=== PATIENT | male | born 1935 | race Caucasian/White ===

== ENCOUNTER 2022-12-11 09:22 | Emergency (ER) | payer OTHER ==
--- OUTSIDE RECORDS SUMMARY | 2022-12-11 09:30 | XMS REPORT | Continuity of Care Document ---
:1935 Author Organization [facility] t Address [facility] [place] [address] Care Team Providers Name Role Phone Latoya Zaldivar MD Primary Care Physician [phone] RENETTA SETHI Attending Clinician Unavailable LATOYA ZALDIVAR Attending Clinician Unavailable Alisson NOE, Cabrera Attending Clinician Latoya Zaldivar MD Attending Clinician [phone] CABRERA BARRIENTOS Attending Clinician Unavailable 2, [facility] Attending Clinician Unavailable Hakeem Kaminski MD Attending Clinician Team, [facility] Attending Clinician [facility] Unassigned, [place] Attending Clinician Unavailable HOMERO PAZ Attending Clinician Unavailable Kassie Suazo DO Attending Clinician Homero Paz MD Attending Clinician Randa Dumont Attending Clinician Pob, [facility] Main Attending Clinician Unavailable HOMERO PAZ Admitting Clinician Unavailable Homero Paz MD Admitting Clinician Payers Payer Name Policy Type Policy Number Effective Date Expiration Date S ource MEDICARE PART A \T\ [id number] 2002 B 00:00:00 [facility] [id number] 2020 INSURANCE 00:00:00 COMMERCIAL [id number] 2018 NON-CONTRACT 00:00:00 GENERIC Problems Condition Condition Condition Status Onset Resolution Last Treating Co mments Source Name Details Category Date Date Treatment Clinician Date Diabetes Diabetes Disease Active Unive rs mellitus mellitus 5-13 ity of 00:00: [place] [facility] Chronic Chronic Disease Active Univers pain of pain of 5-15 ity of right [place] 00:[place]: [place] [facility] 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 ICD10 Diagnosis Term [facility] Coordinator Utility Hx of Hx of Disease Active Overview: [facility] s malignant malignant 12-30 [place] i ty of neoplasm neoplasm 00:00: g of this [place] as of of note Medical prostate prostate might be Bran ch different from the original. Dx age 72- s/p XRT Obesity Obesity Disease Active Overview: Univ ers - [place] ity of 00:00: g of this [place] note Medical might be Branch different from the original. ICD10 Diagnosis Term [facility] Coordinator Utility Mixed Mixed Disease Active Univers hyperlipid hyperlipid 2-26 it y of emia emia 00:00: [place] [facility] Anemia Anemia Disease Active Overview: Univer s 2-26 [place] ity of 00:00: g of this note Medical might be Branch different from the original. ICD10 Diagnosis Term [facility] Coordinator Utility Tinea Tinea Disease Active Univers pedis pedis 2-26 ity of 00:00: [place] [facility] Allergies, Adverse Reactions, Alerts Allergy Allergy Status Severity Reaction(s) Onset Inactive Treating Comm ents Source Name Type Date Date Clinician NO KNOWN Drug Active Univers ALLERGIE Class ity of S [facility] Social History Social Habit Start Date Stop Date Quantity Comments Source History SDOH University o f Alcohol Frequency [facility] edical Branch History SDWY University o f Alcohol Std [place] [facility] Drinks Branch History [facility] o f Alcohol Binge [place] [facility] Alcohol intake 2022-10-10 2022-10-10 .24 /d University of 00:00:00 00:00:00 [facility] Exposure to 2022-05-07 2022-05-17 Not sure University SARS-CoV-2 00:00:00 10:15:00 [facility] (event) Branch Tobacco use and 2014-12-30 2014-12-30 Smokeless tobacco Un iversity of exposure 00:00:00 00:00:00 non-user [facility] Alcohol Comment 2014-12-30 2014-12-30 2 beers a day Univer sity of 00:00:00 00:00:00 [facility] Sex Ass[birth year] At [birth year] Universit y of 00:00:00 00:00:00 [facility] Smoking Status Start Date Stop Date Source Never smoked tobacco [facility] Medications Ordered Filled Start Stop Current Ordering Indication Dosage Frequency Signature Comments Components Source Medication Medication Date Date Medication? Clinician (SIG) Name Name MELOXICAM Yes [id number] 15mg TAKE 1 [place] 15 mg 2-03 TABLET BY ity of tablet 00:00: MOUTH ONCE 00 DAILY Medical NEEDED FOR Branch PAIN. DO NOT TAKE WITH OTHER NSAID'S (ADVIL) MELOXICAM Yes [id number] 15mg TAKE 1 [place] 15 mg 2-03 TABLET BY ity of tablet 00:00: MOUTH ONCE 00 DAILY Medical NEEDED FOR Branch PAIN. DO NOT TAKE WITH OTHER NSAID'S (ADVIL) AMLODIPINE Yes [id number] TAKE 2 [place] 5 mg tablet 2-03 TABLETS BY it y of 00:00: MOUTH [place] 00 EVERY DAY Medical Branch LISINOPRIL- Yes [id number] TAKE 2 U nivers HYDROCHLORO 1-11 TABLETS BY it y of THIAZIDE 00:00: MOUTH [place] 20-12.5 mg 00 EVERY DAY Medi bryce per tablet Branch LISINOPRIL- Yes [id number] TAKE 2 U nivers HYDROCHLORO 1-11 TABLETS BY it y of THIAZIDE 00:00: MOUTH [place] 20-12.5 mg 00 EVERY DAY Medi bryce per tablet Branch LISINOPRIL- 2023-0 Yes [id number] TAKE 2 U nivers HYDROCHLORO 1-11 TABLETS BY it y of THIAZIDE 00:00: MOUTH [place] 20-12.5 mg 00 EVERY DAY Medi bryce per tablet Branch LISINOPRIL- 2022-0 Yes [id number] TAKE 2 U nivers HYDROCHLORO 1-11 TABLETS BY it y of THIAZIDE 00:00: MOUTH [place] 20-12.5 mg 00 EVERY DAY Medi bryce per tablet Branch LISINOPRIL- 2022-0 Yes [id number] TAKE 2 U nivers HYDROCHLORO 1-11 TABLETS BY it y of THIAZIDE 00:00: MOUTH [place] 20-12.5 mg 00 EVERY DAY Medi bryce per tablet Branch METFORMIN 2022-0 Yes [id number] TAKE 1 U nivers 850 mg 1-10 TABLET BY ity of tablet 00:00: MOUTH [place] 00 TWICE A Medical DAY WITH Branch MEALS METFORMIN 2022-0 Yes [id number] TAKE 1 U nivers 850 mg 1-10 TABLET BY ity of tablet 00:00: MOUTH [place] 00 TWICE A Medical DAY WITH Branch MEALS METFORMIN 2022-0 Yes [id number] TAKE 1 U nivers 850 mg 1-10 TABLET BY ity of tablet 00:00: MOUTH [place] 00 TWICE A Medical DAY WITH Branch MEALS METFORMIN 2022-0 Yes [id number] TAKE 1 U nivers 850 mg 1-10 TABLET BY ity of tablet 00:00: MOUTH [place] 00 TWICE A Medical DAY WITH Branch MEALS METFORMIN 3-0 Yes [id number] TAKE 1 U nivers 850 mg 1-10 TABLET BY ity of tablet 00:00: MOUTH [place] 00 TWICE A Medical DAY WITH Branch MEALS METFORMIN 3-0 Yes [id number] TAKE 1 U nivers 850 mg 1-10 TABLET BY ity of tablet 00:00: MOUTH [place] 00 TWICE A Medical DAY WITH Branch MEALS cyclobenzap 2021-11 Yes [id number] 10mg Take 1 Univers rine 10 mg 2-07 tablet by ity of tablet 00:00: mouth in [place] 00 the Medical morning Branch and 1 tablet in the evening. meloxicam 2021-11 Yes [id number] 15mg Take 1 [place] 15 mg 2-07 tablet by ity of tablet 00:00: mouth once [place] 00 daily as Medical needed for Branch Pain. Do not take with other NSAID's (Advil) cyclobenzap 2021-11 Yes [id number] 10mg Take 1 Univers rine 10 mg 2-07 tablet by ity of tablet 00:00: mouth in [place] 00 the Medical morning Branch and 1 tablet in the evening. meloxicam 2021-11 Yes [id number] 15mg Take 1 [place] 15 mg 2-07 tablet by ity of tablet 00:00: mouth once [place] 00 daily as Medical needed for Branch Pain. Do not take with other NSAID's (Advil) cyclobenzap 2021-11 Yes [id number] 10mg Take 1 Univers rine 10 mg 2-07 tablet by ity of tablet 00:00: mouth in [place] 00 the Medical morning Branch and 1 tablet in the evening. meloxicam 2021-11 Yes [id number] 15mg Take 1 [place] 15 mg 2-07 tablet by ity of tablet 00:00: mouth once [place] 00 daily as Medical needed for Branch Pain. Do not take with other NSAID's (Advil) cyclobenzap 2021-11 Yes [id number] 10mg Take 1 Univers rine 10 mg 2-07 tablet by ity of tablet 00:00: mouth in [place] 00 the Medical morning Branch and 1 tablet in the evening. meloxicam 2021-11 Yes [id number] 15mg Take 1 [place] 15 mg 2-07 tablet by ity of tablet 00:00: mouth once [place] 00 daily as Medical needed for Branch Pain. Do not take with other NSAID's (Advil) cyclobenzap 2021-11 Yes [id number] 10mg Take 1 Univers rine 10 mg 2-07 tablet by ity of tablet 00:00: mouth in [place] 00 the Medical morning Branch and 1 tablet in the evening. meloxicam 2021-11 Yes [id number] 15mg Take 1 [place] 15 mg 2-07 tablet by ity of tablet 00:00: mouth once [place] 00 daily as Medical needed for Branch Pain. Do not take with other NSAID's (Advil) cyclobenzap 2021-11 Yes [id number] 10mg Take 1 Univers rine 10 mg 2-07 tablet by ity of tablet 00:00: mouth in [place] 00 the Medical morning Branch and 1 tablet in the evening. meloxicam 2021-11 Yes [id number] 15mg Take 1 [place] 15 mg 2-07 tablet by ity of tablet 00:00: mouth once [place] 00 daily as Medical needed for Branch Pain. Do not take with other NSAID's (Advil) cyclobenzap 2021-11 Yes [id number] 10mg Take 1 Univers rine 10 mg 2-07 tablet by ity of tablet 00:00: mouth in [place] 00 the Medical morning Branch and 1 tablet in the evening. cyclobenzap 2021-11 Yes [id number] 10mg Take 1 Univers rine 10 mg 2-07 tablet by ity of tablet 00:00: mouth in [place] 00 the Medical morning Branch and 1 tablet in the evening. meloxicam 2021-11- No [id number] 15mg Take 1 U nivers 15 mg 2-07 - tablet by ity of tablet 00:00: 00:00 [place] 00 :00 daily as Medical needed for Branch Pain. Do not take with other NSAID's (Advil) AMLODIPINE 0 Yes [id number] TAKE 2 [place] 5 mg tablet 8-08 TABLETS BY it y of 00:00: MOUTH 00 EVERY DAY Medical Branch AMLODIPINE 2021-0 Yes [id number] TAKE 2 [place] 5 mg tablet 8-08 TABLETS BY it y of 00:00: MOUTH [place] 00 EVERY DAY Medical Branch AMLODIPINE 2021-0 Yes [id number] TAKE 2 [place] 5 mg tablet 8-08 TABLETS BY it y of 00:00: MOUTH [place] 00 EVERY DAY Medical Branch AMLODIPINE 2-0 Yes [id number] TAKE 2 [place] 5 mg tablet 8-08 TABLETS BY it y of 00:00: MOUTH 00 EVERY DAY Medical Branch AMLODIPINE 2-0 Yes [id number] TAKE 2 [place] 5 mg tablet 8-08 TABLETS BY it y of 00:00: MOUTH 00 EVERY DAY Medical Branch AMLODIPINE 2-0 Yes [id number] TAKE 2 [place] 5 mg tablet 8-08 TABLETS BY it y of 00:00: MOUTH [place] 00 EVERY DAY Medical Branch AMLODIPINE 2-0 Yes [id number] TAKE 2 [place] 5 mg tablet 8-08 TABLETS BY it y of 00:00: MOUTH [place] 00 EVERY DAY Medical Branch AMLODIPINE 2-0 Yes [id number] TAKE 2 [place] 5 mg tablet 8-08 TABLETS BY it y of 00:00: MOUTH [place] 00 EVERY DAY Medical Branch AMLODIPINE 2-0 Yes [id number] TAKE 2 [place] 5 mg tablet 8-08 TABLETS BY it y of 00:00: MOUTH [place] 00 EVERY DAY Medical Branch AMLODIPINE 2021-0 Yes [id number] TAKE 2 [place] 5 mg tablet 8-08 TABLETS BY it y of 00:00: MOUTH [place] 00 EVERY DAY Medical Branch AMLODIPINE 2021-0 Yes [id number] TAKE 2 [place] 5 mg tablet 8-08 TABLETS BY it y of 00:00: MOUTH [place] 00 EVERY DAY Medical Branch AMLODIPINE 2021-0 Yes [id number] TAKE 2 [place] 5 mg tablet 8-08 TABLETS BY it y of 00:00: MOUTH [place] 00 EVERY DAY Medical Branch AMLODIPINE 2021-0 Yes [id number] TAKE 2 [place] 5 mg tablet 8-08 TABLETS BY it y of 00:00: MOUTH [place] 00 EVERY DAY Medical Branch AMLODIPINE 2021-0 2023- No [id number] TAKE 2 U nivers 5 mg tablet 8-08 02-03 TABLETS BY i ty of 00:00: 00:00 MOUTH [place] 00 :00 EVERY DAY Medical Branch ONETOUCH Yes [id number] CHECK Uni vers ULTRA TEST 8-04 BLOOD ity of strip 00:00: SUGAR ONCE [place] 00 DAILY. Medical E11.9 Branch (BRAND UPON INSURANCE APPROVAL) ONETOUCH Yes [id number] CHECK Uni vers ULTRA TEST 8-04 BLOOD ity of strip 00:00: SUGAR ONCE [place] 00 DAILY. Medical E11.9 Branch (BRAND UPON INSURANCE APPROVAL) ONETOUCH Yes [id number] CHECK Uni vers ULTRA TEST 8-04 BLOOD ity of strip 00:00: SUGAR ONCE [place] 00 DAILY. Medical E11.9 Branch (BRAND UPON INSURANCE APPROVAL) ONETOUCH Yes [id number] CHECK Uni vers ULTRA TEST 8-04 BLOOD ity of strip 00:00: SUGAR ONCE [place] 00 DAILY. Medical E11.9 Branch (BRAND UPON INSURANCE APPROVAL) ONETOUCH Yes [id number] CHECK Uni vers ULTRA TEST 8-04 BLOOD ity of strip 00:00: SUGAR ONCE [place] 00 DAILY. Medical E11.9 Branch (BRAND UPON INSURANCE APPROVAL) ONETOUCH Yes [id number] CHECK Uni vers ULTRA TEST 8-04 BLOOD ity of strip 00:00: SUGAR ONCE [place] 00 DAILY. Medical E11.9 Branch (BRAND UPON INSURANCE APPROVAL) ONETOUCH 2021-0 Yes [id number] CHECK Uni vers ULTRA TEST 8-04 BLOOD ity of strip 00:00: SUGAR ONCE [place] 00 DAILY. Medical E11.9 Branch (BRAND UPON INSURANCE APPROVAL) ONETOUCH Yes [id number] CHECK Uni vers ULTRA TEST 8-04 BLOOD ity of strip 00:00: SUGAR ONCE [place] 00 DAILY. Medical E11.9 Branch (BRAND UPON INSURANCE APPROVAL) ONETOUCH Yes [id number] CHECK Uni vers ULTRA TEST 8-04 BLOOD ity of strip 00:00: SUGAR ONCE [place] 00 DAILY. Medical E11.9 Branch (BRAND UPON INSURANCE APPROVAL) ONETOUCH Yes [id number] CHECK Uni vers ULTRA TEST 8-04 BLOOD ity of strip 00:00: SUGAR ONCE [place] 00 DAILY. Medical E11.9 Branch (BRAND UPON INSURANCE APPROVAL) ONETOUCH Yes [id number] CHECK Uni vers ULTRA TEST 8-04 BLOOD ity of strip 00:00: SUGAR ONCE [place] 00 DAILY. Medical E11.9 Branch (BRAND UPON INSURANCE APPROVAL) ONETOUCH Yes [id number] CHECK Uni vers ULTRA TEST 8-04 BLOOD ity of strip 00:00: SUGAR ONCE [place] 00 DAILY. Medical E11.9 Branch (BRAND UPON INSURANCE APPROVAL) ONETOUCH Yes [id number] CHECK Uni vers ULTRA TEST 8-04 BLOOD ity of strip 00:00: SUGAR ONCE [place] 00 DAILY. Medical E11.9 Branch (BRAND UPON INSURANCE APPROVAL) ONETOUCH Yes [id number] CHECK Uni vers ULTRA TEST 8-04 BLOOD ity of strip 00:00: SUGAR ONCE [place] 00 DAILY. Medical E11.9 Branch (BRAND UPON INSURANCE APPROVAL) ONETOUCH Yes [id number] CHECK Uni vers ULTRA TEST 8-04 BLOOD ity of strip 00:00: SUGAR ONCE [place] 00 DAILY. Medical E11.9 Branch (BRAND UPON INSURANCE APPROVAL) LISINOPRIL- Yes [id number] TAKE 2 U nivers HYDROCHLORO 7-15 TABLETS BY it y of THIAZIDE 00:00: MOUTH [place] 20-12.5 mg 00 EVERY DAY Medi bryce per tablet Branch METFORMIN Yes [id number] TAKE 1 U nivers 850 mg 7-15 TABLET BY ity of tablet 00:00: MOUTH [place] 00 TWICE A Medical DAY WITH Branch MEALS LISINOPRIL- Yes [id number] TAKE 2 U nivers HYDROCHLORO 7-15 TABLETS BY it y of THIAZIDE 00:00: MOUTH [place] 20-12.5 mg 00 EVERY DAY Medi bryce per tablet Branch METFORMIN 2021-0 Yes [id number] TAKE 1 U nivers 850 mg 7-15 TABLET BY ity of tablet 00:00: MOUTH [place] 00 TWICE A Medical DAY WITH Branch MEALS LISINOPRIL- 2021-0 Yes [id number] TAKE 2 U nivers HYDROCHLORO 7-15 TABLETS BY it y of THIAZIDE 00:00: MOUTH [place] 20-12.5 mg 00 EVERY DAY Medi bryce per tablet Branch METFORMIN 2021-0 Yes [id number] TAKE 1 U nivers 850 mg 7-15 TABLET BY ity of tablet 00:00: MOUTH [place] 00 TWICE A Medical DAY WITH Branch MEALS LISINOPRIL- 2021-0 Yes [id number] TAKE 2 U nivers HYDROCHLORO 7-15 TABLETS BY it y of THIAZIDE 00:00: MOUTH [place] 20-12.5 mg 00 EVERY DAY Medi bryce per tablet Branch METFORMIN 2021-0 Yes [id number] TAKE 1 U nivers 850 mg 7-15 TABLET BY ity of tablet 00:00: MOUTH [place] 00 TWICE A Medical DAY WITH Branch MEALS LISINOPRIL- 2021-0 Yes [id number] TAKE 2 U nivers HYDROCHLORO 7-15 TABLETS BY it y of THIAZIDE 00:00: MOUTH [place] 20-12.5 mg 00 EVERY DAY Medi bryce per tablet Branch METFORMIN 2021-0 Yes [id number] TAKE 1 U nivers 850 mg 7-15 TABLET BY ity of tablet 00:00: MOUTH [place] 00 TWICE A Medical DAY WITH Branch MEALS LISINOPRIL- 2021-0 Yes [id number] TAKE 2 U nivers HYDROCHLORO 7-15 TABLETS BY it y of THIAZIDE 00:00: MOUTH [place] 20-12.5 mg 00 EVERY DAY Medi bryce per tablet Branch METFORMIN 2021-0 Yes [id number] TAKE 1 U nivers 850 mg 7-15 TABLET BY ity of tablet 00:00: MOUTH [place] 00 TWICE A Medical DAY WITH Branch MEALS LISINOPRIL- 2021-0 Yes [id number] TAKE 2 U nivers HYDROCHLORO 7-15 TABLETS BY it y of THIAZIDE 00:00: MOUTH [place] 20-12.5 mg 00 EVERY DAY Medi bryce per tablet Branch METFORMIN 2021-0 Yes [id number] TAKE 1 U nivers 850 mg 7-15 TABLET BY ity of tablet 00:00: MOUTH [place] 00 TWICE A Medical DAY WITH Branch MEALS LISINOPRIL- Yes [id number] TAKE 2 U nivers HYDROCHLORO 7-15 TABLETS BY it y of THIAZIDE 00:00: MOUTH [place] 20-12.5 mg 00 EVERY DAY Medi bryce per tablet Branch METFORMIN 0 Yes [id number] TAKE 1 U nivers 850 mg 7-15 TABLET BY ity of tablet 00:00: MOUTH [place] 00 TWICE A Medical DAY WITH Branch MEALS LISINOPRIL- Yes [id number] TAKE 2 U nivers HYDROCHLORO 7-15 TABLETS BY it y of THIAZIDE 00:00: MOUTH [place] 20-12.5 mg 00 EVERY DAY Medi bryce per tablet Branch METFORMIN Yes [id number] TAKE 1 U nivers 850 mg 7-15 TABLET BY ity of tablet 00:00: MOUTH [place] 00 TWICE A Medical DAY WITH Branch MEALS LISINOPRIL- Yes [id number] TAKE 2 U nivers HYDROCHLORO 7-15 TABLETS BY it y of THIAZIDE 00:00: MOUTH [place] 20-12.5 mg 00 EVERY DAY Medi bryce per tablet Branch METFORMIN 0 Yes [id number] TAKE 1 U nivers 850 mg 7-15 TABLET BY ity of tablet 00:00: MOUTH [place] 00 TWICE A Medical DAY WITH Branch MEALS LISINOPRIL- Yes [id number] TAKE 2 U nivers HYDROCHLORO 7-15 TABLETS BY it y of THIAZIDE 00:00: MOUTH [place] 20-12.5 mg 00 EVERY DAY Medi bryce per tablet Branch LISINOPRIL- 2022- No [id number] TAKE 2 Univers HYDROCHLORO 7-15 01-11 TABLETS BY i ty of THIAZIDE 00:00: 00:00 MOUTH [place] 20-12.5 mg 00 :00 EVERY DAY Medi bryce per tablet Branch METFORMIN 0 2022- No [id number] TAKE 1 Univers 850 mg 7-15 01-10 TABLET BY ity of tablet 00:00: 00:00 MOUTH [place] 00 :00 TWICE A Medical DAY WITH Branch MEALS water for 2021- No PRN, Univers irrigation 05-17 Starting ity of irrigation 19:22: 20:02 [facility] :05 05/17/22 at Medic al 1422, Branch Until [place]ette 05/17/22 at 1502, Routine, Intra-op simethicone 2021- No PRN, Unive rs (GAS RELIEF 05-17 Starting ity of (SIMETHICON 19:22: 20:02 on Janette [place] as E)) 40 00 :05 05/17/22 at Medical mg/0.6 mL 1422, Branch drops Until [place] 05/17/22 at 1502, Routine, Intra-op glucagon 2021- No 1mg 1 mg, Univers (GLUCAGEN 05-17 Intravenou ity of DIAGNOSTIC 16:30: 15:25 s, ONCE, 1 [place] KIT) 00 :00 dose, On Medical injection 1 [place] Branch mg 05/17/22 at 1130, Routine NaCl 0.9% 2021- No 1000mL at 999 Uni vers (NS) bolus 05-17- mL/hr, ity of infusion 16:30: 16:50 1,000 mL, [place] as 1,000 mL 00 :00 IV Medical Infusion, Branch ONCE, 1 dose, On [place] 05/17/22 at 1130, [place] glucagon 2021- No 1mg 1 mg, Univers (GLUCAGEN 05-17 Intravenou ity of DIAGNOSTIC 16:30: 15:25 s, ONCE, 1 [place] KIT) 00 :00 dose, On Medical injection 1 [place] Branch mg 05/17/22 at 1130, Routine NaCl 0.9% 2021- No 1000mL at 999 Uni vers (NS) bolus 05-17 mL/hr, ity of infusion 16:30: 16:50 1,000 mL, [place] 1,000 mL 00 :00 IV Medical Infusion, Branch ONCE, 1 dose, On [place] 05/17/22 at 1130, [place] aspirin 81 Yes 81mg Take 81 mg U nivers mg chewable 7-14 by mouth ity of tablet 16:12: daily. [address] multivitami Yes 1{tbl} Take 1 Tab Univers n tablet 7-14 by mouth ity of 16:12: daily. [address] omega-3 Yes 1g Take 1 g Univer s fatty 7-14 by mouth 2 ity of acids-vitam 16:12: (two) [place] in E (FISH 45 times Medical OIL) 1,000 daily. Branch mg capsule RED YEAST Yes 1{tbl} Take 1 Tab Univers RICE ORAL 7-14 by mouth ity of 16:12: daily. [address] CYANOCOBALA Yes 1{tbl} Take 1 Un [place] MIN, 7-14 tablet by ity of VITAMIN 16:12: mouth [place] B-12, 45 daily. Medical (VITAMIN Branch B-12 ORAL) turmeric Yes [id number] 500mg Take 500 Univers root 7-14 [id number] mg by ity of extract 500 16:12: mouth [place] mg Cap 45 daily. Medical Branch COQ10, Yes Take by Univers UBIQUINOL, 7-14 mouth. ity of ORAL 16:12: [address] aspirin 81 Yes 81mg Take 81 mg U nivers mg chewable 7-14 by mouth ity of tablet 16:12: daily. [address] multivitami Yes 1{tbl} Take 1 Tab Univers n tablet 7-14 by mouth ity of 16:12: daily. [address] omega-3 Yes 1g Take 1 g Univer s fatty 7-14 by mouth 2 ity of acids-vitam 16:12: (two) [place] in E (FISH 45 times Medical OIL) 1,000 daily. Branch mg capsule RED YEAST Yes 1{tbl} Take 1 Tab Univers RICE ORAL 7-14 by mouth ity of 16:12: daily. [address] CYANOCOBALA Yes 1{tbl} Take 1 [place] MIN, 7-14 tablet by ity of VITAMIN 16:12: mouth [place] B-12, 45 daily. Medical (VITAMIN Branch B-12 ORAL) turmeric Yes [id number] 500mg Take 500 Univers root 7-14 [id number] mg by ity of extract 500 16:12: mouth [place] mg Cap 45 daily. Medical Branch aspirin 81 Yes 81mg Take 81 mg U nivers mg chewable 7-14 by mouth ity of tablet 16:12: daily. [address] multivitami Yes 1{tbl} Take 1 Tab Univers n tablet 7-14 by mouth ity of 16:12: daily. [address] omega-3 Yes 1g Take 1 g Univer s fatty 7-14 by mouth 2 ity of acids-vitam 16:12: (two) [place] in E (FISH 45 times Medical OIL) 1,000 daily. Branch mg capsule RED YEAST Yes 1{tbl} Take 1 Tab Univers RICE ORAL 7-14 by mouth ity of 16:12: daily. [address] CYANOCOBALA Yes 1{tbl} Take 1 Un [place] MIN, 7-14 tablet by ity of VITAMIN 16:12: mouth [place] B-12, 45 daily. Medical (VITAMIN Branch B-12 ORAL) turmeric Yes [id number] 500mg Take 500 Univers root 7-14 [id number] mg by ity of extract 500 16:12: mouth [place] mg Cap 45 daily. [facility] Branch COQ10, Yes Take by Univers UBIQUINOL, 7-14 mouth. ity of ORAL 16:12: [address] aspirin 81 Yes 81mg Take 81 mg U nivers mg chewable 7-14 by mouth ity of tablet 16:12: daily. [address] multivitami Yes 1{tbl} Take 1 Tab Univers n tablet 7-14 by mouth ity of 16:12: daily. [address] omega-3 Yes 1g Take 1 g Univer s fatty 7-14 by mouth 2 ity of acids-vitam 16:12: (two) [place] in E (FISH 45 times Medical OIL) 1,000 daily. Branch mg capsule RED YEAST Yes 1{tbl} Take 1 Tab Univers RICE ORAL 7-14 by mouth ity of 16:12: daily. [address] CYANOCOBALA Yes 1{tbl} Take 1 [place] MIN, 7-14 tablet by ity of VITAMIN 16:12: mouth [place] B-12, 45 daily. Medical (VITAMIN Branch B-12 ORAL) turmeric Yes [id number] 500mg Take 500 Univers root 7-14 [id number] mg by ity of extract 500 16:12: mouth [place] mg Cap 45 daily. Medical Branch COQ10, Yes Take by Univers UBIQUINOL, 7-14 mouth. ity of ORAL 16:12: [address] Branch aspirin 81 Yes 81mg Take 81 mg U nivers mg chewable 7-14 by mouth ity of tablet 16:12: daily. [address] Branch multivitami Yes 1{tbl} Take 1 Tab Univers n tablet 7-14 by mouth ity of 16:12: daily. [address] Branch omega-3 Yes 1g Take 1 g Univer s fatty 7-14 by mouth 2 ity of acids-vitam 16:12: (two) [place] in E (FISH 45 times Medical OIL) 1,000 daily. Branch mg capsule RED YEAST Yes 1{tbl} Take 1 Tab Univers RICE ORAL 7-14 by mouth ity of 16:12: daily. [address] Branch CYANOCOBALA Yes 1{tbl} Take 1 [place] MIN, 7-14 tablet by ity of VITAMIN 16:12: mouth [place] B-12, 45 daily. Medical (VITAMIN Branch B-12 ORAL) turmeric Yes [id number] 500mg Take 500 Univers root 7-14 [id number] mg by ity of extract 500 16:12: mouth [place] mg Cap 45 daily. Medical Branch COQ10, Yes Take by Univers UBIQUINOL, 7-14 mouth. ity of ORAL 16:12: [address] aspirin 81 Yes 81mg Take 81 mg U nivers mg chewable 7-14 by mouth ity of tablet 16:12: daily. [address] Branch multivitami Yes 1{tbl} Take 1 Tab Univers n tablet 7-14 by mouth ity of 16:12: daily. [address] Branch omega-3 Yes 1g Take 1 g Univer s fatty 7-14 by mouth 2 ity of acids-vitam 16:12: (two) [place] in E (FISH 45 times Medical OIL) 1,000 daily. Branch mg capsule RED YEAST Yes 1{tbl} Take 1 Tab Univers RICE ORAL 7-14 by mouth ity of 16:12: daily. [place] 45 Medical Branch CYANOCOBALA Yes 1{tbl} Take 1 Un [place] MIN, 7-14 tablet by ity of VITAMIN 16:12: mouth [place] B-12, 45 daily. Medical (VITAMIN Branch B-12 ORAL) turmeric Yes [id number] 500mg Take 500 Univers root 7-14 [id number] mg by ity of extract 500 16:12: mouth [place] mg Cap 45 daily. Medical Branch COQ10, Yes Take by Univers UBIQUINOL, 7-14 mouth. ity of ORAL 16:12: [address] aspirin 81 Yes 81mg Take 81 mg U nivers mg chewable 7-14 by mouth ity of tablet 16:12: daily. [address] Branch multivitami Yes 1{tbl} Take 1 Tab Univers n tablet 7-14 by mouth ity of 16:12: daily. [address] omega-3 Yes 1g Take 1 g Univer s fatty 7-14 by mouth 2 ity of acids-vitam 16:12: (two) [place] in E (FISH 45 times Medical OIL) 1,000 daily. Branch mg capsule RED YEAST Yes 1{tbl} Take 1 Tab [facility] RICE ORAL 7-14 by mouth ity of 16:12: daily. [address] CYANOCOBALA Yes 1{tbl} Take 1 [facility] MIN, 7-14 tablet by ity of VITAMIN 16:12: mouth [place] B-12, 45 daily. Medical (VITAMIN Branch B-12 ORAL) turmeric Yes [id number] 500mg Take 500 [facility] root 7-14 49954 mg by ity of extract 500 16:12: mouth [place] mg Cap 45 daily. Medical Branch COQ10, Yes Take by [facility] UBIQUINOL, 7-14 mouth. ity of ORAL 16:12: [address] aspirin 81 Yes 81mg Take 81 mg U nivers mg chewable 7-14 by mouth ity of tablet 16:12: daily. [address] multivitami Yes 1{tbl} Take 1 Tab [facility] n tablet 7-14 by mouth ity of 16:12: daily. [address] omega-3 Yes 1g Take 1 g Univer [facility] fatty 7-14 by mouth 2 ity of acids-vitam 16:12: (two) [place] in E (FISH 45 times Medical OIL) 1,000 daily. Branch mg capsule RED YEAST Yes 1{tbl} Take 1 Tab [facility] RICE ORAL 7-14 by mouth ity of 16:12: daily. [address] CYANOCOBALA Yes 1{tbl} Take 1 [facility] [place] MIN, 7-14 tablet by ity of VITAMIN 16:12: mouth [place] B-12, 45 daily. Medical (VITAMIN Branch B-12 ORAL) turmeric Yes [id number] 500mg Take 500 [facility] root 7-14 41412 mg by ity of extract 500 16:12: mouth [place] mg Cap 45 daily. Medical Branch COQ10, Yes Take by [facility] UBIQUINOL, 7-14 mouth. ity of ORAL 16:12: [address] aspirin 81 Yes 81mg Take 81 mg U nivers mg chewable 7-14 by mouth ity of tablet 16:12: daily. [address] multivitami Yes 1{tbl} Take 1 Tab [facility] n tablet 7-14 by mouth ity of 16:12: daily. [address] omega-3 Yes 1g Take 1 g Un[facility] fatty 7-14 by mouth 2 ity of acids-vitam 16:12: (two) [place] in E (FISH 45 times Medical OIL) 1,000 daily. Branch mg capsule RED YEAST Yes 1{tbl} Take 1 Tab [facility] RICE ORAL 7-14 by mouth ity of 16:12: daily. [address] CYANOCOBALA Yes 1{tbl} Take 1 [facility] [place] MIN, 7-14 tablet by ity of VITAMIN 16:12: mouth [place] B-12, 45 daily. Medical (VITAMIN Branch B-12 ORAL) turmeric Yes [id number] 500mg Take 500 [facility] root 7-14 89516 mg by ity of extract 500 16:12: mouth [place] mg Cap 45 daily. Medical Branch COQ10, Yes Take by [facility] UBIQUINOL, 7-14 mouth. ity of ORAL 16:12: [address] aspirin 81 Yes 81mg Take 81 mg U nivers mg chewable 7-14 by mouth ity of tablet 16:12: daily. [address] multivitami Yes 1{tbl} Take 1 Tab [facility] n tablet 7-14 by mouth ity of 16:12: daily. [address] omega-3 Yes 1g Take 1 g [facility] fatty 7-14 by mouth 2 ity of acids-vitam 16:12: (two) [place] in E (FISH 45 times Medical OIL) 1,000 daily. Branch mg capsule RED YEAST Yes 1{tbl} Take 1 Tab [facility] RICE ORAL 7-14 by mouth ity of 16:12: daily. [address] CYANOCOBALA Yes 1{tbl} Take 1 [facility] [place] MIN, 7-14 tablet by ity of VITAMIN 16:12: mouth [place] B-12, 45 daily. Medical (VITAMIN Branch B-12 ORAL) turmeric Yes [id number] 500mg Take 500 [facility] root 7-14 38127 mg by ity of extract 500 16:12: mouth [place] mg Cap 45 daily. [facility] Branch COQ10, Yes Take by [facility] UBIQUINOL, 7-14 mouth. ity of ORAL 16:12: [address] aspirin 81 Yes 81mg Take 81 mg U nivers mg chewable 7-14 by mouth ity of tablet 16:12: daily. [address] multivitami Yes 1{tbl} Take 1 Tab [facility] n tablet 7-14 by mouth ity of 16:12: daily. [address] omega-3 Yes 1g Take 1 g Univer s fatty 7-14 by mouth 2 ity of acids-vitam 16:12: (two) [place] in E (FISH 45 times Medical OIL) 1,000 daily. Branch mg capsule RED YEAST Yes 1{tbl} Take 1 Tab [facility] RICE ORAL 7-14 by mouth ity of 16:12: daily. [address] CYANOCOBALA Yes 1{tbl} Take 1 [place] MIN, 7-14 tablet by ity of VITAMIN 16:12: mouth [place] B-12, 45 daily. Medical (VITAMIN Branch B-12 ORAL) turmeric Yes [id number] 500mg Take 500 [facility] root 7-14 41673 mg by ity of extract 500 16:12: mouth [place] mg Cap 45 daily. Medical Branch COQ10, Yes Take by [facility] UBIQUINOL, 7-14 mouth. ity of ORAL 16:12: [address] aspirin 81 Yes 81mg Take 81 mg U nivers mg chewable 7-14 by mouth ity of tablet 16:12: daily. [address] Branch multivitami Yes 1{tbl} Take 1 Tab [facility] n tablet 7-14 by mouth ity of 16:12: daily. [address] Branch omega-3 Yes 1g Take 1 g Univer s fatty 7-14 by mouth 2 ity of acids-vitam 16:12: (two) [place] in E (FISH 45 times Medical OIL) 1,000 daily. Branch mg capsule RED YEAST Yes 1{tbl} Take 1 Tab [facility] RICE ORAL 7-14 by mouth ity of 16:12: daily. [address] Branch CYANOCOBALA Yes 1{tbl} Take 1 [place] MIN, 7-14 tablet by ity of VITAMIN 16:12: mouth [place] B-12, 45 daily. Medical (VITAMIN Branch B-12 ORAL) turmeric Yes [id number] 500mg Take 500 [facility] root 7-14 63695 mg by ity of extract 500 16:12: mouth [place] mg Cap 45 daily. Medical Branch COQ10, Yes Take by [facility] UBIQUINOL, 7-14 mouth. ity of ORAL 16:12: [address] aspirin 81 Yes 81mg Take 81 mg U nivers mg chewable 7-14 by mouth ity of tablet 16:12: daily. [address] Branch multivitami Yes 1{tbl} Take 1 Tab [facility] n tablet 7-14 by mouth ity of 16:12: daily. [address] omega-3 Yes 1g Take 1 g Univer s fatty 7-14 by mouth 2 ity of acids-vitam 16:12: (two) [place] in E (FISH 45 times Medical OIL) 1,000 daily. Branch mg capsule RED YEAST Yes 1{tbl} Take 1 Tab [facility] RICE ORAL 7-14 by mouth ity of 16:12: daily. [address] CYANOCOBALA Yes 1{tbl} Take 1 [place] MIN, 7-14 tablet by ity of VITAMIN 16:12: mouth [place] B-12, 45 daily. Medical (VITAMIN Branch B-12 ORAL) turmeric Yes [id number] 500mg Take 500 [facility] root 7-14 61351 mg by ity of extract 500 16:12: mouth [place] mg Cap 45 daily. Medical Branch COQ10, Yes Take by Univers UBIQUINOL, 7-14 mouth. ity of ORAL 16:12: [address] aspirin 81 Yes 81mg Take 81 mg U nivers mg chewable 7-14 by mouth ity of tablet 16:12: daily. [address] multivitami Yes 1{tbl} Take 1 Tab [facility] n tablet 7-14 by mouth ity of 16:12: daily. [address] omega-3 Yes 1g Take 1 g Univer s fatty 7-14 by mouth 2 ity of acids-vitam 16:12: (two) [place] in E (FISH 45 times Medical OIL) 1,000 daily. Branch mg capsule RED YEAST Yes 1{tbl} Take 1 Tab [facility] RICE ORAL 7-14 by mouth ity of 16:12: daily. [address] CYANOCOBALA Yes 1{tbl} Take 1 [place] MIN, 7-14 tablet by ity of VITAMIN 16:12: mouth [place] B-12, 45 daily. Medical (VITAMIN Branch B-12 ORAL) turmeric Yes [id number] 500mg Take 500 [facility] root 7-14 53230 mg by ity of extract 500 16:12: mouth [place] mg Cap 45 daily. Medical Branch COQ10, Yes Take by Univers UBIQUINOL, 7-14 mouth. ity of ORAL 16:12: [address] aspirin 81 Yes 81mg Take 81 mg U nivers mg chewable 7-14 by mouth ity of tablet 16:12: daily. [address] multivitami Yes 1{tbl} Take 1 Tab [facility] n tablet 7-14 by mouth ity of 16:12: daily. [address] omega-3 Yes 1g Take 1 g Univer s fatty 7-14 by mouth 2 ity of acids-vitam 16:12: (two) [place] in E (FISH 45 times Medical OIL) 1,000 daily. Branch mg capsule RED YEAST Yes 1{tbl} Take 1 Tab [facility] RICE ORAL 7-14 by mouth ity of 16:12: daily. [address] Branch CYANOCOBALA Yes 1{tbl} Take 1 [place] MIN, 7-14 tablet by ity of VITAMIN 16:12: mouth [place] B-12, 45 daily. Medical (VITAMIN Branch B-12 ORAL) turmeric Yes [id number] 500mg Take 500 [facility] root 7-14 57827 mg by ity of extract 500 16:12: mouth [place] mg Cap 45 daily. Medical Branch COQ10, Yes Take by [facility] UBIQUINOL, 7-14 mouth. ity of ORAL 16:12: [address] aspirin 81 Yes 81mg Take 81 mg U nivers mg chewable 7-14 by mouth ity of tablet 16:12: daily. [address] multivitami Yes 1{tbl} Take 1 Tab [facility] n tablet 7-14 by mouth ity of 16:12: daily. [address] omega-3 Yes 1g Take 1 g Univer s fatty 7-14 by mouth 2 ity of acids-vitam 16:12: (two) [place] in E (FISH 45 times Medical OIL) 1,000 daily. Branch mg capsule RED YEAST Yes 1{tbl} Take 1 Tab [facility] RICE ORAL 7-14 by mouth ity of 16:12: daily. [address] CYANOCOBALA Yes 1{tbl} Take 1 [place] MIN, 7-14 tablet by ity of VITAMIN 16:12: mouth [place] B-12, 45 daily. Medical (VITAMIN Branch B-12 ORAL) turmeric Yes [id number] 500mg Take 500 [facility] root 7-14 34752 mg by ity of extract 500 16:12: mouth [place] mg Cap 45 daily. Medical Branch COQ10, Yes Take by Univers UBIQUINOL, 7-14 mouth. ity of ORAL 16:12: [address] aspirin 81 Yes 81mg Take 81 mg U nivers mg chewable 7-14 by mouth ity of tablet 16:12: daily. [address] Branch multivitami Yes 1{tbl} Take 1 Tab [facility] n tablet 7-14 by mouth ity of 16:12: daily. [address] omega-3 Yes 1g Take 1 g Univer s fatty 7-14 by mouth 2 ity of acids-vitam 16:12: (two) [place] in E (FISH 45 times Medical OIL) 1,000 daily. Branch mg capsule RED YEAST Yes 1{tbl} Take 1 Tab [facility] RICE ORAL 7-14 by mouth ity of 16:12: daily. [address] CYANOCOBALA Yes 1{tbl} Take 1 [place] MIN, 7-14 tablet by ity of VITAMIN 16:12: mouth [place] B-12, 45 daily. Medical (VITAMIN Branch B-12 ORAL) turmeric Yes [id number] 500mg Take 500 [facility] root 7-14 10080 mg by ity of extract 500 16:12: mouth [place] mg Cap 45 daily. [facility] Branch COQ10, Yes Take by Univers UBIQUINOL, 7-14 mouth. ity of ORAL 16:12: [address] aspirin 81 Yes 81mg Take 81 mg U nivers mg chewable 7-14 by mouth ity of tablet 16:12: daily. [address] multivitami Yes 1{tbl} Take 1 Tab [facility] n tablet 7-14 by mouth ity of 16:12: daily. [address] omega-3 Yes 1g Take 1 g Univer s fatty 7-14 by mouth 2 ity of acids-vitam 16:12: (two) [place] in E (FISH 45 times Medical OIL) 1,000 daily. Branch mg capsule RED YEAST Yes 1{tbl} Take 1 Tab [facility] RICE ORAL 7-14 by mouth ity of 16:12: daily. [address] CYANOCOBALA Yes 1{tbl} Take 1 [place] MIN, 7-14 tablet by ity of VITAMIN 16:12: mouth [place] B-12, 45 daily. Medical (VITAMIN Branch B-12 ORAL) turmeric Yes [id number] 500mg Take 500 [facility] root 7-14 95316 mg by ity of extract 500 16:12: mouth [place] mg Cap 45 daily. Medical Branch COQ10, Yes Take by Univers UBIQUINOL, 7-14 mouth. ity of ORAL 16:12: [address] Branch aspirin 81 Yes 81mg Take 81 mg U nivers mg chewable 7-14 by mouth ity of tablet 16:12: daily. [address] Branch multivitami Yes 1{tbl} Take 1 Tab Univers n tablet 7-14 by mouth ity of 16:12: daily. [address] omega-3 Yes 1g Take 1 g Univer s fatty 7-14 by mouth 2 ity of acids-vitam 16:12: (two) [place] in E (FISH 45 times Medical OIL) 1,000 daily. Branch mg capsule RED YEAST Yes 1{tbl} Take 1 Tab [facility] RICE ORAL 7-14 by mouth ity of 16:12: daily. [address] Branch CYANOCOBALA Yes 1{tbl} Take 1 [place] MIN, 7-14 tablet by ity of VITAMIN 16:12: mouth [place] B-12, 45 daily. Medical (VITAMIN Branch B-12 ORAL) turmeric Yes [id number] 500mg Take 500 [facility] root 7-14 71189 mg by ity of extract 500 16:12: mouth [place] mg Cap 45 daily. Medical Branch COQ10, Yes Take by Univers UBIQUINOL, 7-14 mouth. ity of ORAL 16:12: [address] Branch ondansetron 2021- No 4mg 4 mg, Slow Univers (ZOFRAN 05-17 IV Push, ity of (PF)) 15:30: 15:26 ONCE, 1 [place] injection 4 00 :00 dose, On Medi bryce mg Janette Branch 05/17/22 at 1030, [place] ondansetron 2021- No 4mg 4 mg, Slow Univers (ZOFRAN 7-14 07-14 IV Push, ity of (PF)) 15:30: 15:26 ONCE, 1 [place] injection 4 00 :00 dose, On Medi bryce mg [place] Branch 05/17/22 at 1030, [place] COQ10, Yes Take by Univers UBIQUINOL, 6-01 mouth. ity of ORAL 20:28: [place] [facility] Branch COQ10, Yes Take by Univers UBIQUINOL, 6-01 mouth. ity of ORAL 20:28: [place] [facility] Branch turmeric Yes [id number] 500mg Take 500 [facility] root 5-13 48799 mg by ity of extract 500 10:59: mouth [place] mg Cap 25 daily. Medical Branch turmeric Yes [id number] 500mg Take 500 [facility] root 5-13 09002 mg by ity of extract 500 10:59: mouth [place] mg Cap 25 daily. Medical Branch CYANOCOBALA Yes 1{tbl} Take 1 [place] MIN, 5-13 tablet by ity of VITAMIN 10:59: mouth [place] B-12, 14 daily. Medical (VITAMIN Branch B-12 ORAL) CYANOCOBALA Yes 1{tbl} Take 1 [place] MIN, 5-13 tablet by ity of VITAMIN 10:59: mouth [place] B-12, 14 daily. Medical (VITAMIN Branch B-12 ORAL) aspirin 81 Yes 81mg Take 81 mg U nivers mg chewable 5-13 by mouth ity of tablet 10:59: daily. [place] [facility] aspirin 81 Yes 81mg Take 81 mg U nivers mg chewable 5-13 by mouth ity of tablet 10:59: daily. [address] multivitami Yes 1{tbl} Take 1 Tab Univers n tablet 5-13 by mouth ity of 10:59: daily. [place] [facility] multivitami Yes 1{tbl} Take 1 Tab Univers n tablet 5-13 by mouth ity of 10:59: daily. [place] [facility] omega-3 Yes 1g Take 1 g Univer s fatty 5-13 by mouth 2 ity of acids-vitam 10:59: (two) [place] in E (FISH 02 times Medical OIL) 1,000 daily. Branch mg capsule omega-3 Yes 1g Take 1 g Univer s fatty 5-13 by mouth 2 ity of acids-vitam 10:59: (two) [place] in E (FISH 02 times Medical OIL) 1,000 daily. Branch mg capsule RED YEAST Yes 1{tbl} Take 1 Tab [facility] RICE ORAL 5-13 by mouth ity of 10:59: daily. 00 Medical Branch RED YEAST Yes 1{tbl} Take 1 Tab [facility] RICE ORAL 5-13 by mouth ity of 10:59: daily. 00 Medical Branch CANNABIDIOL 2021- No Take by [facility] , CBD, 5-13 05-13 mouth. ity of EXTRACT 10:58: 00:00 [place] ORAL 54 :00 Medical Branch metoprolol Yes TAKE 1 Unive rs succinate 4-27 TABLET BY ity o f XL 50 mg 24 00:00: MOUTH [place] hr tablet 00 EVERY DAY Medic al FOR 90 Branch DAYS metoprolol Yes TAKE 1 Unive rs succinate 4-27 TABLET BY ity o f XL 50 mg 24 00:00: MOUTH [place] hr tablet 00 EVERY DAY Medic al FOR 90 Branch DAYS metoprolol Yes TAKE 1 Unive rs succinate 4-27 TABLET BY ity o f XL 50 mg 24 00:00: MOUTH [place] hr tablet 00 EVERY DAY Medic al FOR 90 Branch DAYS metoprolol Yes TAKE 1 Unive rs succinate 4-27 TABLET BY ity o f XL 50 mg 24 00:00: MOUTH [place] hr tablet 00 EVERY DAY Medic al FOR 90 Branch DAYS metoprolol Yes TAKE 1 Unive rs succinate 4-27 TABLET BY ity o f XL 50 mg 24 00:00: MOUTH [place] hr tablet 00 EVERY DAY Medic al FOR 90 Branch DAYS metoprolol Yes TAKE 1 Unive rs succinate 4-27 TABLET BY ity o f XL 50 mg 24 00:00: MOUTH [place] hr tablet 00 EVERY DAY Medic al FOR 90 Branch DAYS metoprolol Yes TAKE 1 Unive rs succinate 4-27 TABLET BY ity o f XL 50 mg 24 00:00: MOUTH [place] hr tablet 00 EVERY DAY Medic al FOR 90 Branch DAYS metoprolol Yes TAKE 1 Unive rs succinate 4-27 TABLET BY ity o f XL 50 mg 24 00:00: MOUTH [place] hr tablet 00 EVERY DAY Medic al FOR 90 Branch DAYS metoprolol 0 Yes TAKE 1 Unive rs succinate 4-27 TABLET BY ity o f XL 50 mg 24 00:00: MOUTH [place] hr tablet 00 EVERY DAY Medic al FOR 90 Branch DAYS metoprolol 0 Yes TAKE 1 Unive rs succinate 4-27 TABLET BY ity o f XL 50 mg 24 00:00: MOUTH [place] hr tablet 00 EVERY DAY Medic al FOR 90 Branch DAYS metoprolol 0 Yes TAKE 1 Unive rs succinate 4-27 TABLET BY ity o f XL 50 mg 24 00:00: MOUTH [place] hr tablet 00 EVERY DAY Medic al FOR 90 Branch DAYS metoprolol 0 Yes TAKE 1 Unive rs succinate 4-27 TABLET BY ity o f XL 50 mg 24 00:00: MOUTH [place] hr tablet 00 EVERY DAY Medic al FOR 90 Branch DAYS metoprolol 0 Yes TAKE 1 Unive rs succinate 4-27 TABLET BY ity o f XL 50 mg 24 00:00: MOUTH [place] hr tablet 00 EVERY DAY Medic al FOR 90 Branch DAYS metoprolol 0 Yes TAKE 1 Unive rs succinate 4-27 TABLET BY ity o f XL 50 mg 24 00:00: MOUTH [place] hr tablet 00 EVERY DAY Medic al FOR 90 Branch DAYS metoprolol 0 Yes TAKE 1 Unive rs succinate 4-27 TABLET BY ity o f XL 50 mg 24 00:00: MOUTH [place] hr tablet 00 EVERY DAY Medic al FOR 90 Branch DAYS metoprolol 0 Yes TAKE 1 Unive rs succinate 4-27 TABLET BY ity o f XL 50 mg 24 00:00: MOUTH [place] hr tablet 00 EVERY DAY Medic al FOR 90 Branch DAYS metoprolol 0 Yes TAKE 1 Unive rs succinate 4-27 TABLET BY ity o f XL 50 mg 24 00:00: MOUTH [place] hr tablet 00 EVERY DAY Medic al FOR 90 Branch DAYS metoprolol 2021-0 Yes TAKE 1 Unive rs succinate 4-27 TABLET BY ity o f XL 50 mg 24 00:00: MOUTH [place] hr tablet 00 EVERY DAY Medic al FOR 90 Branch DAYS metoprolol 2021-0 Yes TAKE 1 Unive rs succinate 4-27 TABLET BY ity o f XL 50 mg 24 00:00: MOUTH [place] hr tablet 00 EVERY DAY Medic al FOR 90 Branch DAYS metoprolol 2021-0 Yes TAKE 1 Unive rs succinate 4-27 TABLET BY ity o f XL 50 mg 24 00:00: MOUTH [place] hr tablet 00 EVERY DAY Medic al FOR 90 Branch DAYS AMLODIPINE 2021-0 Yes [id number] TAKE 2 [facility] [place] 5 mg tablet 1-25 TABLETS BY it y of 00:00: MOUTH [place] 00 EVERY DAY Medical Branch AMLODIPINE 2-0 Yes [id number] TAKE 2 [place] 5 mg tablet 1-25 TABLETS BY it y of 00:00: MOUTH [place] 00 EVERY DAY Medical Branch AMLODIPINE 2-0 Yes [id number] TAKE 2 [facility] [place] 5 mg tablet 1-25 TABLETS BY it y of 00:00: MOUTH [place] 00 EVERY DAY Medical Branch AMLODIPINE 2-0 Yes [id number] TAKE 2 [facility] [place] 5 mg tablet 1-25 TABLETS BY it y of 00:00: MOUTH [place] 00 EVERY DAY Medical Branch AMLODIPINE 2-0 Yes [id number] TAKE 2 [place] 5 mg tablet 1-25 TABLETS BY it y of 00:00: MOUTH [place] 00 EVERY DAY Medical Branch AMLODIPINE 2-0 Yes [id number] TAKE 2 [facility] [place] 5 mg tablet 1-25 TABLETS BY it y of 00:00: MOUTH [place] 00 EVERY DAY Medical Branch AMLODIPINE 2-0 Yes [id number] TAKE 2 [facility] [place] 5 mg tablet 1-25 TABLETS BY it y of 00:00: MOUTH [place] 00 EVERY DAY Medical Branch AMLODIPINE 2-0 2022- No [id number] TAKE 2 U nivers 5 mg tablet 1-25 08-08 TABLETS BY i ty of 00:00: 00:00 MOUTH [place] 00 :00 EVERY DAY Medical Branch METFORMIN 2022-0 Yes [id number] TAKE 1 U nivers 850 mg 1-13 TABLET BY ity of tablet 00:00: MOUTH [place] 00 TWICE A Medical DAY WITH Branch MEALS METFORMIN 2022-0 Yes [id number] TAKE 1 U nivers 850 mg 1-13 TABLET BY ity of tablet 00:00: MOUTH [place] 00 TWICE A Medical DAY WITH Branch MEALS METFORMIN 2022-0 Yes [id number] TAKE 1 U nivers 850 mg 1-13 TABLET BY ity of tablet 00:00: MOUTH [place] 00 TWICE A Medical DAY WITH Branch MEALS METFORMIN 2022-0 Yes [id number] TAKE 1 U nivers 850 mg 1-13 TABLET BY ity of tablet 00:00: MOUTH [place] 00 TWICE A Medical DAY WITH Branch MEALS METFORMIN 2021- No [id number] TAKE 1 [facility] 850 mg 1-13 07-15 TABLET BY ity of tablet 00:00: 00:00 MOUTH [place] 00 :00 TWICE A Medical DAY WITH Branch MEALS METFORMIN 2021- No [id number] TAKE 1 [facility] 850 mg 1-13 07-15 TABLET BY ity of tablet 00:00: 00:00 MOUTH [place] 00 :00 TWICE A Medical DAY WITH Branch MEALS LISINOPRIL- 2020-11 Yes [id number] TAKE 2 U nivers HYDROCHLORO 1-18 TABLETS BY it y of THIAZIDE 00:00: MOUTH [place] 20-12.5 mg 00 EVERY DAY Medi bryce per tablet Branch LISINOPRIL- 2020-11 Yes [id number] TAKE 2 U nivers HYDROCHLORO 1-18 TABLETS BY it y of THIAZIDE 00:00: MOUTH [place] 20-12.5 mg 00 EVERY DAY Medi bryce per tablet Branch LISINOPRIL- 2020-11 Yes [id number] TAKE 2 U nivers HYDROCHLORO 1-18 TABLETS BY it y of THIAZIDE 00:00: MOUTH [place] 20-12.5 mg 00 EVERY DAY Medi bryce per tablet Branch LISINOPRIL- 2020-11 Yes [id number] TAKE 2 U nivers HYDROCHLORO 1-18 TABLETS BY it y of THIAZIDE 00:00: MOUTH [place] 20-12.5 mg 00 EVERY DAY Medi bryce per tablet Branch LISINOPRIL- 2020-11- No [id number] TAKE 2 Univers HYDROCHLORO 1-18 07-15 TABLETS BY i ty of THIAZIDE 00:00: 00:00 MOUTH [place] 20-12.5 mg 00 :00 EVERY DAY Medi bryce per tablet Branch LISINOPRIL- 2020-11- No [id number] TAKE 2 Univers HYDROCHLORO 1-18 07-15 TABLETS BY i ty of THIAZIDE 00:00: 00:00 MOUTH [place] 20-12.5 mg 00 :00 EVERY DAY Medi bryce per tablet Branch ONETOUCH Yes [id number] CHECK Uni vers ULTRA BLUE 8-02 BLOOD ity of TEST STRIP 00:00: SUGAR ONCE [place] strip 00 DAILY. Medical E11.9 Branch (BRAND UPON INSURANCE APPROVAL) ONETOUCH Yes [id number] CHECK Uni vers ULTRA BLUE 8-02 BLOOD ity of TEST STRIP 00:00: SUGAR ONCE [place] strip 00 DAILY. Medical E11.9 Branch (BRAND UPON INSURANCE APPROVAL) ONETOUCH Yes [id number] CHECK Uni vers ULTRA BLUE 8-02 BLOOD ity of TEST STRIP 00:00: SUGAR ONCE [place] strip 00 DAILY. Medical E11.9 Branch (BRAND UPON INSURANCE APPROVAL) ONETOUCH Yes [id number] CHECK Uni vers ULTRA BLUE 8-02 BLOOD ity of TEST STRIP 00:00: SUGAR ONCE [place] strip 00 DAILY. Medical E11.9 Branch (BRAND UPON INSURANCE APPROVAL) ONETOUCH Yes [id number] CHECK Uni vers ULTRA BLUE 8-02 BLOOD ity of TEST STRIP 00:00: SUGAR ONCE [place] strip 00 DAILY. 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 Medical E11.9 Branch (BRAND UPON INSURANCE APPROVAL) efinaconazo Yes [id number] Applu [facility] le 10 % 5-13 directly ity of topical 00:00: to the [place] solution 00 fingernail Medic al s or Branch toenails once daily for 48 weeks. One drop is applied to the surface of each affected nail; for the great toenail, an additional drop should be applied at the end of the toenail. The applicatio n brush is used to spread the solution to the toenail bed, adjacent nail folds, hyponychiu m, and undersurfa ce of the nail plate. efinaconazo Yes [id number] Applu [facility] le 10 % 5-13 directly ity of topical 00:00: to the [place] solution 00 fingernail Medic al s or Branch toenails once daily for 48 weeks. One drop is applied to the surface of each affected nail; for the great toenail, an additional drop should be applied at the end of the toenail. The applicatio n brush is used to spread the solution to the toenail bed, adjacent nail folds, hyponychiu m, and undersurfa ce of the nail plate. efinaconazo Yes [id number] Applu [facility] le 10 % 5-13 directly ity of topical 00:00: to the [place] solution 00 fingernail Medic al s or Branch toenails once daily for 48 weeks. One drop is applied to the surface of each affected nail; for the great toenail, an additional drop should be applied at the end of the toenail. The applicatio n brush is used to spread the solution to the toenail bed, adjacent nail folds, hyponychiu m, and undersurfa ce of the nail plate. efinaconazo Yes [id number] Applu [facility] le 10 % 5-13 directly ity of topical 00:00: to the [place] solution 00 fingernail Medic al s or Branch toenails once daily for 48 weeks. One drop is applied to the surface of each affected nail; for the great toenail, an additional drop should be applied at the end of the toenail. The applicatio n brush is used to spread the solution to the toenail bed, adjacent nail folds, hyponychiu m, and undersurfa ce of the nail plate. efinaconazo Yes [id number] Applu [facility] le 10 % 5-13 directly ity of topical 00:00: to the [place] solution 00 fingernail Medic al s or Branch toenails once daily for 48 weeks. One drop is applied to the surface of each affected nail; for the great toenail, an additional drop should be applied at the end of the toenail. The applicatio n brush is used to spread the solution to the toenail bed, adjacent nail folds, hyponychiu m, and undersurfa ce of the nail plate. efinaconazo Yes [id number] Applu [facility] le 10 % 5-13 directly ity of topical 00:00: to the [place] solution 00 fingernail Medic al s or Branch toenails once daily for 48 weeks. One drop is applied to the surface of each affected nail; for the great toenail, an additional drop should be applied at the end of the toenail. The applicatio n brush is used to spread the solution to the toenail bed, adjacent nail folds, hyponychiu m, and undersurfa ce of the nail plate. efinaconazo Yes [id number] Applu [facility] le 10 % 5-13 directly ity of topical 00:00: to the [place] solution 00 fingernail Medic al s or Branch toenails once daily for 48 weeks. One drop is applied to the surface of each affected nail; for the great toenail, an additional drop should be applied at the end of the toenail. The applicatio n brush is used to spread the solution to the toenail bed, adjacent nail folds, hyponychiu m, and undersurfa ce of the nail plate. efinaconazo Yes [id number] Applu [facility] le 10 % 5-13 directly ity of topical 00:00: to the [place] solution 00 fingernail Medic al s or Branch toenails once daily for 48 weeks. One drop is applied to the surface of each affected nail; for the great toenail, an additional drop should be applied at the end of the toenail. The applicatio n brush is used to spread the solution to the toenail bed, adjacent nail folds, hyponychiu m, and undersurfa ce of the nail plate. efinaconazo Yes [id number] Applu [facility] le 10 % 5-13 directly ity of topical 00:00: to the [place] solution 00 fingernail Medic al s or Branch toenails once daily for 48 weeks. One drop is applied to the surface of each affected nail; for the great toenail, an additional drop should be applied at the end of the toenail. The applicatio n brush is used to spread the solution to the toenail bed, adjacent nail folds, hyponychiu m, and undersurfa ce of the nail plate. efinaconazo Yes [id number] Applu [facility] le 10 % 5-13 directly ity of topical 00:00: to the [place] solution 00 fingernail Medic al s or Branch toenails once daily for 48 weeks. One drop is applied to the surface of each affected nail; for the great toenail, an additional drop should be applied at the end of the toenail. The applicatio n brush is used to spread the solution to the toenail bed, adjacent nail folds, hyponychiu m, and undersurfa ce of the nail plate. efinaconazo Yes [id number] Applu [facility] le 10 % 5-13 directly ity of topical 00:00: to the [place] solution 00 fingernail Medic al s or Branch toenails once daily for 48 weeks. One drop is applied to the surface of each affected nail; for the great toenail, an additional drop should be applied at the end of the toenail. The applicatio n brush is used to spread the solution to the toenail bed, adjacent nail folds, hyponychiu m, and undersurfa ce of the nail plate. efinaconazo Yes [id number] Applu [facility] le 10 % 5-13 directly ity of topical 00:00: to the [place] solution 00 fingernail Medic al s or Branch toenails once daily for 48 weeks. One drop is applied to the surface of each affected nail; for the great toenail, an additional drop should be applied at the end of the toenail. The applicatio n brush is used to spread the solution to the toenail bed, adjacent nail folds, hyponychiu m, and undersurfa ce of the nail plate. efinaconazo Yes [id number] Applu [facility] le 10 % 5-13 directly ity of topical 00:00: to the [place] solution 00 fingernail Medic al s or Branch toenails once daily for 48 weeks. One drop is applied to the surface of each affected nail; for the great toenail, an additional drop should be applied at the end of the toenail. The applicatio n brush is used to spread the solution to the toenail bed, adjacent nail folds, hyponychiu m, and undersurfa ce of the nail plate. efinaconazo Yes [id number] Applu [facility] le 10 % 5-13 directly ity of topical 00:00: to the [place] solution 00 fingernail Medic al s or Branch toenails once daily for 48 weeks. One drop is applied to the surface of each affected nail; for the great toenail, an additional drop should be applied at the end of the toenail. The applicatio n brush is used to spread the solution to the toenail bed, adjacent nail folds, hyponychiu m, and undersurfa ce of the nail plate. efinaconazo Yes [id number] [facility]lu [facility] le 10 % 5-13 directly ity of topical 00:00: to the [place] solution 00 fingernail Medic al s or Branch toenails once daily for 48 weeks. One drop is applied to the surface of each affected nail; for the great toenail, an additional drop should be applied at the end of the toenail. The applicatio n brush is used to spread the solution to the toenail bed, adjacent nail folds, hyponychiu m, and undersurfa ce of the nail plate. efinaconazo Yes [id number] Applu [facility] le 10 % 5-13 directly ity of topical 00:00: to the [place] solution 00 fingernail Medic al s or Branch toenails once daily for 48 weeks. One drop is applied to the surface of each affected nail; for the great toenail, an additional drop should be applied at the end of the toenail. The applicatio n brush is used to spread the solution to the toenail bed, adjacent nail folds, hyponychiu m, and undersurfa ce of the nail plate. efinaconazo Yes [id number] [facility]lu [facility] le 10 % 5-13 directly ity of topical 00:00: to the [place] solution 00 fingernail Medic al s or Branch toenails once daily for 48 weeks. One drop is applied to the surface of each affected nail; for the great toenail, an additional drop should be applied at the end of the toenail. The applicatio n brush is used to spread the solution to the toenail bed, adjacent nail folds, hyponychiu m, and undersurfa ce of the nail plate. efinaconazo Yes [id number] [facility]lu [facility] le 10 % 5-13 directly ity of topical 00:00: to the [place] solution 00 fingernail Medic al s or Branch toenails once daily for 48 weeks. One drop is applied to the surface of each affected nail; for the great toenail, an additional drop should be applied at the end of the toenail. The applicatio n brush is used to spread the solution to the toenail bed, adjacent nail folds, hyponychiu m, and undersurfa ce of the nail plate. efinaconazo Yes [id number] [facility] le 10 % 5-13 directly ity of topical 00:00: to the [place] solution 00 fingernail Medic al s or Branch toenails once daily for 48 weeks. One drop is applied to the surface of each affected nail; for the great toenail, an additional drop should be applied at the end of the toenail. The applicatio n brush is used to spread the solution to the toenail bed, adjacent nail folds, hyponychiu m, and undersurfa ce of the nail plate. efinaconazo Yes [id number] [facility] 10 % 5-13 directly ity of topical 00:00: to the [place] solution 00 fingernail Medic al s or Branch toenails once daily for 48 weeks. One drop is applied to the surface of each affected nail; for the great toenail, an additional drop should be applied at the end of the toenail. The applicatio n brush is used to spread the solution to the toenail bed, adjacent nail folds, hyponychiu m, and undersurfa ce of the nail plate. efinaconazo Yes [id number] [facility] 10 % 5-13 directly ity of topical 00:00: to the [place] solution 00 fingernail Medic al s or Branch toenails once daily for 48 weeks. One drop is applied to the surface of each affected nail; for the great toenail, an additional drop should be applied at the end of the toenail. The applicatio n brush is used to spread the solution to the toenail bed, adjacent nail folds, hyponychiu m, and undersurfa ce of the nail plate. lancets 2019-11 Yes [id number] USE Uni vers (ONETOUCH 1-17 DIRECTED ity of DELICA 00:00: FOR ONCE A [place] LANCETS) 30 00 DAY BLOOD Med ical gauge Misc GLUCOSE Branch MONITORING FOR ICD CODE OF E11.9 TYPE 2 NIDDM lancets 2019-11 Yes [id number] USE Uni vers (ONETOUCH 1-17 DIRECTED ity of DELICA 00:00: FOR ONCE A [place] LANCETS) 30 00 DAY BLOOD Med ical gauge Misc GLUCOSE Branch MONITORING FOR ICD CODE OF E11.9 TYPE 2 NIDDM lancets 2020- Yes [id number] USE Uni vers (ONETOUCH 1-17 DIRECTED ity of DELICA 00:00: FOR ONCE A [place] LANCETS) 30 00 DAY BLOOD Med ical gauge Misc GLUCOSE Branch MONITORING FOR ICD CODE OF E11.9 TYPE 2 NIDDM lancets 2020- Yes [id number] USE Uni vers (ONETOUCH 1-17 DIRECTED ity of DELICA 00:00: FOR ONCE A [place] LANCETS) 30 DAY BLOOD Med ical gauge Misc GLUCOSE Branch MONITORING FOR ICD CODE OF E11.9 TYPE 2 NIDDM lancets 2019-11 Yes [id number] USE Uni vers (ONETOUCH 1-17 DIRECTED ity of DELICA 00:00: FOR ONCE A [place] LANCETS) 30 DAY BLOOD Med ical gauge Misc GLUCOSE Branch MONITORING FOR ICD CODE OF E11.9 TYPE 2 NIDDM lancets 2020 Yes [id number] USE Uni vers (ONETOUCH 1-17 DIRECTED ity of DELICA 00:00: FOR ONCE A [place] LANCETS) 30 DAY BLOOD Med ical gauge Misc GLUCOSE Branch MONITORING FOR ICD CODE OF E11.9 TYPE 2 NIDDM lancets 2020 Yes [id number] USE Uni vers (ONETOUCH 1-17 DIRECTED ity of DELICA 00:00: FOR ONCE A [place] LANCETS) 30 DAY BLOOD Med ical gauge Misc GLUCOSE Branch MONITORING FOR ICD CODE OF E11.9 TYPE 2 NIDDM lancets 2020- Yes [id number] USE Uni vers (ONETOUCH 1-17 DIRECTED ity of DELICA 00:00: FOR ONCE A [place] LANCETS) 30 00 DAY BLOOD Med ical gauge Misc GLUCOSE Branch MONITORING FOR ICD CODE OF E11.9 TYPE 2 NIDDM lancets 2020- Yes [id number] USE Uni vers (ONETOUCH 1-17 DIRECTED ity of DELICA 00:00: FOR ONCE A [place] LANCETS) 30 00 DAY BLOOD Med ical gauge Misc GLUCOSE Branch MONITORING FOR ICD CODE OF E11.9 TYPE 2 NIDDM lancets 2020- Yes [id number] USE Uni vers (ONETOUCH 1-17 DIRECTED ity of DELICA 00:00: FOR ONCE A [place] LANCETS) 30 00 DAY BLOOD Med ical gauge Misc GLUCOSE Branch MONITORING FOR ICD CODE OF E11.9 TYPE 2 NIDDM lancets 2019-11 Yes [id number] USE Uni vers (ONETOUCH 1-17 DIRECTED ity of DELICA 00:00: FOR ONCE A [place] LANCETS) 30 00 DAY BLOOD Med ical gauge Misc GLUCOSE Branch MONITORING FOR ICD CODE OF E11.9 TYPE 2 NIDDM lancets 2019-11 Yes [id number] USE Uni vers (ONETOUCH 1-17 DIRECTED ity of DELICA 00:00: FOR ONCE A [place] LANCETS) 30 DAY BLOOD Med ical gauge Misc GLUCOSE Branch MONITORING FOR ICD CODE OF E11.9 TYPE 2 NIDDM lancets 2019-11 Yes [id number] USE Uni vers (ONETOUCH 1-17 DIRECTED ity of DELICA 00:00: FOR ONCE A [place] LANCETS) 30 DAY BLOOD Med ical gauge Misc GLUCOSE Branch MONITORING FOR ICD CODE OF E11.9 TYPE 2 NIDDM lancets 2019-11 Yes [id number] USE Uni vers (ONETOUCH 1-17 DIRECTED ity of DELICA 00:00: FOR ONCE A [place] LANCETS) 30 DAY BLOOD Med ical gauge Misc GLUCOSE Branch MONITORING FOR ICD CODE OF E11.9 TYPE 2 NIDDM lancets 2019-11 Yes [id number] USE Uni vers (ONETOUCH 1-17 DIRECTED ity of DELICA 00:00: FOR ONCE A [place] LANCETS) 30 DAY BLOOD Med ical gauge Misc GLUCOSE Branch MONITORING FOR ICD CODE OF E11.9 TYPE 2 NIDDM lancets 2019-11 Yes [id number] USE Uni vers (ONETOUCH 1-17 DIRECTED ity of DELICA 00:00: FOR ONCE A [place] LANCETS) 30 00 DAY BLOOD Med ical gauge Misc GLUCOSE Branch MONITORING FOR ICD CODE OF E11.9 TYPE 2 NIDDM lancets 2020 Yes [id number] USE Uni vers (ONETOUCH 1-17 DIRECTED ity of DELICA 00:00: FOR ONCE A [place] LANCETS) 30 00 DAY BLOOD Med ical gauge Misc GLUCOSE Branch MONITORING FOR ICD CODE OF E11.9 TYPE 2 NIDDM lancets 2020-1 Yes [id number] USE Uni vers (ONETOUCH 1-17 DIRECTED ity of DELICA 00:00: FOR ONCE A [place] LANCETS) 30 00 DAY BLOOD Med ical gauge Misc GLUCOSE Branch MONITORING FOR ICD CODE OF E11.9 TYPE 2 NIDDM lancets 2020 Yes [id number] USE Uni vers (ONETOUCH 1-17 DIRECTED ity of DELICA 00:00: FOR ONCE A [place] LANCETS) 30 00 DAY BLOOD Med ical gauge Misc GLUCOSE Branch MONITORING FOR ICD CODE OF E11.9 TYPE 2 NIDDM lancets 2019-11 Yes [id number] USE Uni vers (ONETOUCH 1-17 DIRECTED ity of DELICA 00:00: FOR ONCE A [place] LANCETS) 30 00 DAY BLOOD Med ical gauge Misc GLUCOSE Branch MONITORING FOR ICD CODE OF E11.9 TYPE 2 NIDDM lancets 2019-11 Yes [id number] USE Uni vers (ONETOUCH 1-17 DIRECTED ity of DELICA 00:00: FOR ONCE A [place] LANCETS) 30 DAY BLOOD Med ical gauge Misc GLUCOSE Branch MONITORING FOR ICD CODE 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 E11.9 ity o f Kit 00:00: [facility] [place] 00 insurance Medical approval. Branch Blood-Gluco 2019-0 Yes [id number] Check BS Univers se Meter 07-13 BID. E11.9 ity o f Kit 00:00: [facility] [place] 00 insurance Medical approval. Branch Blood-Gluco 2019-0 Yes [id number] Check BS Univers se Meter 07-13 BID. E11.9 ity o f Kit 00:00: [facility] [place] 00 insurance Medical approval. Branch Blood-Gluco 2019-0 Yes [id number] Check BS Univers se Meter 07-13 BID. E11.9 ity o f Kit 00:00: [facility] [place] 00 insurance Medical approval. Branch Blood-Gluco 2019-0 Yes [id number] Check BS Univers se Meter 07-13 BID. E11.9 ity o f Kit 00:00: [facility] [place] 00 insurance Medical approval. Branch Blood-Gluco 2019-0 Yes [id number] Check BS Univers se Meter 9 BID. E11.9 ity o f Kit 00:00: [facility] [place] 00 insurance Medical approval. Branch Blood-Gluco 2019-0 Yes [id number] Check BS Univers se Meter 07-13 BID. E11.9 ity o f Kit 00:00: [facility] [place] 00 insurance Medical approval. Branch Blood-Gluco 2019-0 Yes [id number] Check BS Univers se Meter 07-13 BID. E11.9 ity o f Kit 00:00: [facility] [place] 00 insurance Medical approval. Branch Blood-Gluco 2019-0 Yes [id number] Check BS Univers se Meter 07-13 BID. E11.9 ity o f Kit 00:00: [facility] [place] 00 insurance Medical approval. Branch Blood-Gluco 2019-0 Yes [id number] Check BS Univers se Meter 07-13 BID. E11.9 ity o f Kit 00:00: [facility] [place] 00 insurance Medical approval. Branch Blood-Gluco 2019-0 Yes [id number] Check BS Univers se Meter 07-13 BID. E11.9 ity o f Kit 00:00: [facility] [place] 00 insurance Medical approval. Branch Blood-Gluco 2019-0 Yes [id number] Check BS Univers se Meter 07-13 BID. E11.9 ity o f Kit 00:00: [facility] upon [place] 00 insurance Medical approval. Branch Blood-Gluco 2019-0 Yes [id number] Check BS Univers se Meter 07-13 BID. E11.9 ity o f Kit 00:00: [facility] [place] 00 insurance Medical approval. Branch Blood-Gluco 2019-0 Yes [id number] Check BS Univers se Meter 07-13 BID. E11.9 ity o f Kit 00:00: [facility] upon [place] 00 insurance Medical approval. Branch Blood-Gluco 2019-0 Yes [id number] Check BS Univers se Meter 07-13 BID. E11.9 ity o f Kit 00:00: [facility] upon [place] 00 insurance Medical approval. Branch Blood-Gluco 2019-0 Yes [id number] Check BS Univers se Meter 07-13 BID. E11.9 ity o f Kit 00:00: [facility] upon [place] 00 insurance Medical approval. Branch Blood-Gluco 2019-0 Yes [id number] Check BS Univers se Meter 07-13 BID. E11.9 ity o f Kit 00:00: [facility] upon [place] 00 insurance Medical approval. Branch Blood-Gluco 2019-0 Yes [id number] Check BS Univers se Meter 07-13 BID. E11.9 ity o f Kit 00:00: [facility] upon 00 insurance Medical approval. [place] Blood-Gluco 2018- Yes [id number] Check BS Univers se Meter 07-13 BID. E11.9 ity o f Kit 00:00: [facility] upon [place] insurance Medical approval. [place] Blood-Gluco 2018- Yes [id number] Check BS Univers se Meter 07-13 BID. E11.9 ity o f Kit 00:00: [facility] upon [place] 00 insurance Medical approval. [place] Blood-Gluco 2018- Yes [id number] Check BS Univers se Meter 07-13 BID. E11.9 ity o f Kit 00:00: Brand upon [place] insurance Medical approval. [place] metoprolol 2021- No 25mg Take 25 mg Univers succinate 05-30 05-13 by mouth ity o f XL 25 mg 24 00:00: 00:00 daily. Neal as hr tablet 00 :00 Medical [place] Blood 2018- Yes [id number] Us control U nivers Glucose 1-16 solution ity of Control, 00:00: for your [place] Normal (OT 00 glucometer Med ical ULTRA/FASTT machine, [email or web address] RACK the one CONTROL) touch Soln ultra. Blood Yes [id number] Us control U nivers Glucose 1-16 solution ity of Control, 00:00: for your [place] Normal (OT 00 glucometer Med ical ULTRA/FASTT machine, [email or web address] RACK the one CONTROL) touch Soln ultra. Blood 2018- Yes [id number] Us control U nivers Glucose 1-16 solution ity of Control, 00:00: for your [place] Normal (OT 00 glucometer Med ical ULTRA/FASTT machine, [email or web address] RACK the one CONTROL) touch Soln ultra. Blood 2018- Yes [id number] Us control U nivers Glucose 1-16 solution ity of Control, 00:00: for your [place] Normal (OT 00 glucometer Med ical ULTRA/FASTT machine, [email or web address] RACK the one CONTROL) touch Soln ultra. Blood 2018- Yes [id number] Us control U nivers Glucose 1-16 solution ity of Control, 00:00: for your [place] Normal (OT 00 glucometer Med ical ULTRA/FASTT machine, [email or web address] RACK the one CONTROL) touch Soln ultra. Blood 2018- Yes [id number] Us control U nivers Glucose 1-16 solution ity of Control, 00:00: for your [place] Normal (OT 00 glucometer Med ical ULTRA/FASTT machine, Bran ch RACK the one CONTROL) touch Soln ultra. Blood 2019-0 Yes [id number] Us control U nivers Glucose 1-16 solution ity of Control, 00:00: for your [place] Normal (OT 00 glucometer Med ical ULTRA/FASTT machine, Bran ch RACK the one CONTROL) touch Soln ultra. Blood 2019-0 Yes [id number] Us control U nivers Glucose 1-16 solution ity of Control, 00:00: for your [place] Normal (OT 00 glucometer Med ical ULTRA/FASTT machine, Bran ch RACK the one CONTROL) touch Soln ultra. Blood 2019-0 Yes [id number] Us control U nivers Glucose 1-16 solution ity of Control, 00:00: for your [place] Normal (OT 00 glucometer Med ical ULTRA/FASTT machine, Bran ch RACK the one CONTROL) touch Soln ultra. Blood 2019-0 Yes [id number] Us control U nivers Glucose 1-16 solution ity of Control, 00:00: for your [place] Normal (OT 00 glucometer Med ical ULTRA/FASTT machine, Bran ch RACK the one CONTROL) touch Soln ultra. Blood 2019-0 Yes [id number] Us control U nivers Glucose 1-16 solution ity of Control, 00:00: for your [place] Normal (OT 00 glucometer Med ical ULTRA/FASTT machine, Bran ch RACK the one CONTROL) touch Soln ultra. Blood 2019-0 Yes [id number] Us control U nivers Glucose 1-16 solution ity of Control, 00:00: for your [place] Normal (OT 00 glucometer Med ical ULTRA/FASTT machine, Bran ch RACK the one CONTROL) touch Soln ultra. Blood 2019-0 Yes [id number] Us control U nivers Glucose 1-16 solution ity of Control, 00:00: for your [place] Normal (OT 00 glucometer Med ical ULTRA/FASTT machine, Bran ch RACK the one CONTROL) touch Soln ultra. Blood 2019-0 Yes [id number] Us control U nivers Glucose 1-16 solution ity of Control, 00:00: for your [place] Normal (OT 00 glucometer Med ical ULTRA/FASTT machine, Bran ch RACK the one CONTROL) touch Soln ultra. Blood 2019-0 Yes [id number] Us control U nivers Glucose 1-16 solution ity of Control, 00:00: for your [place] Normal (OT 00 glucometer Med ical ULTRA/FASTT machine, Bran ch RACK the one CONTROL) touch Soln ultra. Blood 2019-0 Yes [id number] Us control U nivers Glucose 1-16 solution ity of Control, 00:00: for your [place] Normal (OT 00 glucometer Med ical ULTRA/FASTT machine, Bran ch RACK the one CONTROL) touch Soln ultra. Blood 2019-0 Yes [id number] Us control U nivers Glucose 1-16 solution ity of Control, 00:00: for your [place] Normal (OT 00 glucometer Med ical ULTRA/FASTT machine, Bran ch RACK the one CONTROL) touch Soln ultra. Blood 2019-0 Yes [id number] Us control U nivers Glucose 1-16 solution ity of Control, 00:00: for your [place] Normal (OT 00 glucometer Med ical ULTRA/FASTT machine, Bran ch RACK the one CONTROL) touch Soln ultra. Blood 2019-0 Yes [id number] Us control U nivers Glucose 1-16 solution ity of Control, 00:00: for your [place] Normal (OT 00 glucometer Med ical ULTRA/FASTT machine, Bran ch RACK the one CONTROL) touch Soln ultra. Blood 2019-0 Yes [id number] Us control U nivers Glucose 1-16 solution ity of Control, 00:00: for your [place] Normal (OT 00 glucometer Med ical ULTRA/FASTT machine, Bran ch RACK the one CONTROL) touch Soln ultra. Blood 2019-0 Yes [id number] Us control U nivers Glucose 1-16 solution ity of Control, 00:00: for your [place] Normal (OT 00 glucometer Med ical ULTRA/FASTT machine, Bran ch RACK the one CONTROL) touch Soln ultra. Immunizations Ordered Filled Immunization Date Status Comments [facility] e Immunization Name Name SARS-COV-2 COVID-19 2021-09-19 Completed Unive rsity of MODERNA VACCINE 00:00:00 [place] [facility] SARS-COV-2 COVID-19 2021-09-19 Completed Unive rsity of MODERNA VACCINE 00:00:00 [place] [facility] SARS-COV-2 COVID-19 2021-09-19 Completed Unive rsity of MODERNA VACCINE 00:00:00 [place] [facility] SARS-COV-2 COVID-19 2021-09-19 Completed Unive rsity of MODERNA VACCINE 00:00:00 [place] [facility] SARS-COV-2 COVID-19 2021-09-19 Completed Unive rsity of MODERNA VACCINE 00:00:00 [place] [facility] SARS-COV-2 COVID-19 2021-09-19 Completed Unive rsity of MODERNA VACCINE 00:00:00 [place] [facility] SARS-COV-2 COVID-19 2021-09-19 Completed Unive rsity of MODERNA VACCINE 00:00:00 [place] [facility] SARS-COV-2 COVID-19 2021-09-19 Completed Unive rsity of MODERNA VACCINE 00:00:00 [place] [facility] SARS-COV-2 COVID-19 2021-09-19 Completed Unive rsity of MODERNA 12+ YRS 00:00:00 [place] [facility] ical VACCINE Branch SARS-COV-2 COVID-19 2021-09-19 Completed Unive rsity of MODERNA 12+ YRS 00:00:00 [place] [facility] ical VACCINE Branch SARS-COV-2 COVID-19 2021-09-19 Completed Unive rsity of MODERNA 12+ YRS 00:00:00 [place] [facility] ical VACCINE Branch SARS-COV-2 COVID-19 2021-09-19 Completed Unive rsity of MODERNA 12+ YRS 00:00:00 [place] [facility] ical VACCINE Branch SARS-COV-2 COVID-19 2021-09-19 Completed Unive rsity of MODERNA 12+ YRS 00:00:00 [place] [facility] ical VACCINE Branch SARS-COV-2 COVID-19 2021-09-19 Completed Unive rsity of MODERNA 12+ YRS 00:00:00 [place] [facility] ical VACCINE Branch SARS-COV-2 COVID-19 2021-09-19 Completed Unive rsity of MODERNA 12+ YRS 00:00:00 [place] [facility] ical VACCINE Branch SARS-COV-2 COVID-19 2021-09-19 Completed Unive rsity of MODERNA 12+ YRS 00:00:00 [place] [facility] ical VACCINE Branch SARS-COV-2 COVID-19 2021-09-19 Completed Unive rsity of MODERNA 12+ YRS 00:00:00 [place] [facility] ical VACCINE Branch SARS-COV-2 COVID-19 2021-09-19 Completed Unive rsity of MODERNA 12+ YRS 00:00:00 [place] [facility] ical VACCINE Branch SARS-COV-2 COVID-19 2021-09-19 Completed Unive rsity of MODERNA 12+ YRS 00:00:00 [place] [facility] ical VACCINE Branch SARS-COV-2 COVID-19 2021-09-19 Completed Unive rsity of MODERNA 12+ YRS 00:00:00 [place] [facility] ical VACCINE Branch SARS-COV-2 COVID-19 2021-09-19 Completed Unive rsity of MODERNA 12+ YRS 00:00:00 [facility] VACCINE Branch Influenza High Dose 2020-08-22 Completed Unive rsity of 00:00:00 [facility] Influenza High Dose 2020-08-22 Completed Unive rsity of 00:00:00 [facility] Influenza High Dose 2020-08-22 Completed Unive rsity of 00:00:00 [facility] Influenza High Dose 2020-08-22 Completed Unive rsity of 00:00:00 [facility] Influenza High Dose 2020-08-22 Completed Unive rsity of 00:00:00 [facility] Influenza High Dose 2020-08-22 Completed Unive rsity of 00:00:00 [facility] Influenza High Dose 2020-08-22 Completed Unive rsity of 00:00:00 [facility] Influenza High Dose 2020-08-22 Completed Unive rsity of 00:00:00 [facility] Influenza High Dose 2020-08-22 Completed Unive rsity of 00:00:00 [facility] Influenza High Dose 2020-08-22 Completed Unive rsity of 00:00:00 [facility] Influenza High Dose 2020-08-22 Completed Unive rsity of 00:00:00 [facility] Influenza High Dose 2020-08-22 Completed Unive rsity of 00:00:00 [facility] Influenza High Dose 2020-08-22 Completed Unive rsity of 00:00:00 [facility] Influenza High Dose 2020-08-22 Completed Unive rsity of 00:00:00 [facility] Influenza High Dose 2020-08-22 Completed Unive rsity of 00:00:00 [facility] Branch Influenza High Dose 2020-08-22 Completed Unive rsity of 00:00:00 [facility] Branch Influenza High Dose 2020-08-22 Completed Unive rsity of 00:00:00 [facility] Branch Influenza High Dose 2020-08-22 Completed Unive rsity of 00:00:00 [facility] Influenza High Dose 2020-08-22 Completed Unive rsity of 00:00:00 [facility] Influenza High Dose 2020-08-22 Completed Unive rsity of 00:00:00 [facility] Influenza High Dose 2020-08-22 Completed Unive rsity of 00:00:00 [place] [facility] TDAP 2019-10-21 Completed University of 00:00:00 [place] [facility] TDAP 2019-10-21 Completed University of 00:00:00 [place] [facility] TDAP 2019-10-21 Completed University of 00:00:00 [place] [facility] TDAP 2019-10-21 Completed University of 00:00:00 [place] [facility] TDAP 2019-10-21 Completed University of 00:00:00 [place] [facility] TDAP 2019-10-21 Completed University of 00:00:00 [place] [facility] TDAP 2019-10-21 Completed University of 00:00:00 [place] [facility] TDAP 2019-10-21 Completed University of 00:00:00 [place] [facility] TDAP 2019-10-21 Completed University of 00:00:00 [place] [facility] TDAP 2019-10-21 Completed University of 00:00:00 [place] [facility] TDAP 2019-10-21 Completed University of 00:00:00 [place] [facility] TDAP 2019-10-21 Completed University of 00:00:00 [place] [facility] TDAP 2019-10-21 Completed University of 00:00:00 [place] [facility] TDAP 2019-10-21 Completed University of 00:00:00 [place] [facility] TDAP 2019-10-21 Completed University of 00:00:00 [place] [facility] Branch TDAP 2019-10-21 Completed [facility] 00:00:00 [facility] TDAP 2019-10-21 Completed [facility] 00:00:00 [facility] TDAP 2019-10-21 Completed [facility] 00:00:00 [facility] TDAP 2019-10-21 Completed [facility] of 00:00:00 [facility] TDAP 2019-10-21 Completed [facility] of 00:00:00 [facility] TDAP 2019-10-21 Completed University of 00:00:00 [facility] Influenza High Dose 2019-09-07 Completed Unive rsity of 00:00:00 [facility] Influenza High Dose 2019-09-07 Completed Unive rsity of 00:00:00 [facility] Influenza High Dose 2019-09-07 Completed Unive rsity of 00:00:00 [facility] Influenza High Dose 2019-09-07 Completed Unive rsity of 00:00:00 [facility] Influenza High Dose 2019-09-07 Completed Unive rsity of 00:00:00 [facility] Influenza High Dose 2019-09-07 Completed Unive rsity of 00:00:00 [facility] Influenza High Dose 2019-09-07 Completed Unive rsity of 00:00:00 [facility] Influenza High Dose 2019-09-07 Completed Unive rsity of 00:00:00 [facility] Influenza High Dose 2019-09-07 Completed Unive rsity of 00:00:00 [facility] Influenza High Dose 2019-09-07 Completed Unive rsity of 00:00:00 [facility] Influenza High Dose 2019-09-07 Completed Unive rsity of 00:00:00 [facility] Influenza High Dose 2019-09-07 Completed Unive rsity of 00:00:00 [facility] Influenza High Dose 2019-09-07 Completed Unive rsity of 00:00:00 [facility] Influenza High Dose 2019-09-07 Completed Unive rsity of 00:00:00 [facility] Influenza High Dose 2019-09-07 Completed Unive rsity of 00:00:00 [facility] Influenza High Dose 2019-09-07 Completed Unive rsity of 00:00:00 [facility] Influenza High Dose 2019-09-07 Completed Unive rsity of 00:00:00 [facility] Influenza High Dose 2019-09-07 Completed Unive rsity of 00:00:00 [facility] Influenza High Dose 2019-09-07 Completed Unive rsity of 00:00:00 [facility] Influenza High Dose 2019-09-07 Completed Unive rsity of 00:00:00 [facility] Influenza High Dose 2019-09-07 Completed Unive rsity of 00:00:00 [facility] Influenza Virus 2018-08-26 Completed Universit y of Vaccine 00:00:00 [facility] Influenza High Dose 2018-08-26 Completed Unive rsity of 00:00:00 [facility] Influenza Virus 2018-08-26 Completed Universit y of Vaccine 00:00:00 [facility] Influenza High Dose 2018-08-26 Completed Unive rsity of 00:00:00 [facility] Influenza Virus 2018-08-26 Completed Universit y of Vaccine 00:00:00 [facility] Influenza High Dose 2018-08-26 Completed Unive rsity of 00:00:00 [facility] Influenza Virus 2018-08-26 Completed Universit y of Vaccine 00:00:00 [facility] Influenza High Dose 2018-08-26 Completed Unive rsity of 00:00:00 [facility] Influenza Virus 2018-08-26 Completed Universit y of Vaccine 00:00:00 [facility] Influenza High Dose 2018-08-26 Completed Unive rsity of 00:00:00 [facility] Influenza Virus 2018-08-26 Completed Universit y of Vaccine 00:00:00 [facility] Influenza High Dose 2018-08-26 Completed Unive rsity of 00:00:00 [facility] Influenza Virus 2018-08-26 Completed Universit y of Vaccine 00:00:00 [facility] Influenza High Dose 2018-08-26 Completed Unive rsity of 00:00:00 [facility] Influenza Virus 2018-08-26 Completed Universit y of Vaccine 00:00:00 [facility] Influenza High Dose 2018-08-26 Completed Unive rsity of 00:00:00 [facility] Influenza Virus 2018-08-26 Completed Universit y of Vaccine 00:00:00 [facility] Influenza High Dose 2018-08-26 Completed Unive rsity of 00:00:00 [facility] Influenza Virus 2018-08-26 Completed Universit y of Vaccine 00:00:00 [facility] Influenza High Dose 2018-08-26 Completed Unive rsity of 00:00:00 [facility] Influenza Virus 2018-08-26 Completed Universit y of Vaccine 00:00:00 [facility] Influenza High Dose 2018-08-26 Completed Unive rsity of 00:00:00 [facility] Influenza Virus 2018-08-26 Completed Universit y of Vaccine 00:00:00 [facility] Influenza High Dose 2018-08-26 Completed Unive rsity of 00:00:00 [facility] Influenza Virus 2018-08-26 Completed Universit y of Vaccine 00:00:00 [facility] Influenza High Dose 2018-08-26 Completed Unive rsity of 00:00:00 [facility] Influenza Virus 2018-08-26 Completed Universit y of Vaccine 00:00:00 [facility] Influenza High Dose 2018-08-26 Completed Unive rsity of 00:00:00 [facility] Influenza Virus 2018-08-26 Completed Universit y of Vaccine 00:00:00 [facility] Influenza High Dose 2018-08-26 Completed Unive rsity of 00:00:00 [facility] Influenza Virus 2018-08-26 Completed Universit y of Vaccine 00:00:00 [facility] Influenza High Dose 2018-08-26 Completed Unive rsity of 00:00:00 [facility] Influenza Virus 2018-08-26 Completed Universit y of Vaccine 00:00:00 [facility] Influenza High Dose 2018-08-26 Completed Unive rsity of 00:00:00 [facility] Influenza Virus 2018-08-26 Completed Universit y of Vaccine 00:00:00 [facility] Influenza High Dose 2018-08-26 Completed Unive rsity of 00:00:00 [facility] Influenza Virus 2018-08-26 Completed Universit y of Vaccine 00:00:00 [facility] Influenza High Dose 2018-08-26 Completed Unive rsity of 00:00:00 [facility] Influenza Virus 2018-08-26 Completed Universit y of Vaccine 00:00:00 [facility] Influenza High Dose 2018-08-26 Completed Unive rsity of 00:00:00 [facility] Influenza Virus 2018-08-26 Completed Universit y of Vaccine 00:00:00 [facility] Influenza High Dose 2018-08-26 Completed Unive rsity of 00:00:00 [facility] Influenza High Dose 2017-08-30 Completed Unive rsity of 00:00:00 [facility] Influenza High Dose 2017-08-30 Completed Unive rsity of 00:00:00 [facility] Influenza High Dose 2017-08-30 Completed Unive rsity of 00:00:00 [facility] Influenza High Dose 2017-08-30 Completed Unive rsity of 00:00:00 [facility] Influenza High Dose 2017-08-30 Completed Unive rsity of 00:00:00 [facility] Influenza High Dose 2017-08-30 Completed Unive rsity of 00:00:00 [facility] Influenza High Dose 2017-08-30 Completed Unive rsity of 00:00:00 [facility] Influenza High Dose 2017-08-30 Completed Unive rsity of 00:00:00 [facility] Influenza High Dose 2017-08-30 Completed Unive rsity of 00:00:00 [facility] Influenza High Dose 2017-08-30 Completed Unive rsity of 00:00:00 [facility] Influenza High Dose 2017-08-30 Completed Unive rsity of 00:00:00 [facility] Influenza High Dose 2017-08-30 Completed Unive rsity of 00:00:00 [facility] Influenza High Dose 2017-08-30 Completed Unive rsity of 00:00:00 [facility] Influenza High Dose 2017-08-30 Completed Unive rsity of 00:00:00 [facility] Influenza High Dose 2017-08-30 Completed Unive rsity of 00:00:00 [facility] Influenza High Dose 2017-08-30 Completed Unive rsity of 00:00:00 [facility] Influenza High Dose 2017-08-30 Completed Unive rsity of 00:00:00 [facility] Influenza High Dose 2017-08-30 Completed Unive rsity of 00:00:00 [facility] Influenza High Dose 2017-08-30 Completed Unive rsity of 00:00:00 [facility] Influenza High Dose 2017-08-30 Completed Unive rsity of 00:00:00 [facility] Influenza High Dose 2017-08-30 Completed Unive rsity of 00:00:00 [facility] Influenza High Dose 2016-09-08 Completed Unive rsity of 00:00:00 [facility] Influenza High Dose 2016-09-08 Completed Unive rsity of 00:00:00 [facility] Influenza High Dose 2016-09-08 Completed Unive rsity of 00:00:00 [facility] Influenza High Dose 2016-09-08 Completed Unive rsity of 00:00:00 [facility] Influenza High Dose 2016-09-08 Completed Unive rsity of 00:00:00 [facility] Influenza High Dose 2016-09-08 Completed Unive rsity of 00:00:00 [facility] Influenza High Dose 2016-09-08 Completed Unive rsity of 00:00:00 [facility] Influenza High Dose 2016-09-08 Completed Unive rsity of 00:00:00 [facility] Influenza High Dose 2016-09-08 Completed Unive rsity of 00:00:00 [facility] Influenza High Dose 2016-09-08 Completed Unive rsity of 00:00:00 [facility] Influenza High Dose 2016-09-08 Completed Unive rsity of 00:00:00 [facility] Influenza High Dose 2016-09-08 Completed Unive rsity of 00:00:00 [facility] Influenza High Dose 2016-09-08 Completed Unive rsity of 00:00:00 [facility] Influenza High Dose 2016-09-08 Completed Unive rsity of 00:00:00 [facility] Influenza High Dose 2016-09-08 Completed Unive rsity of 00:00:00 [facility] Influenza High Dose 2016-09-08 Completed Unive rsity of 00:00:00 [facility] Influenza High Dose 2016-09-08 Completed Unive rsity of 00:00:00 [facility] Influenza High Dose 2016-09-08 Completed Unive rsity of 00:00:00 [facility] Influenza High Dose 2016-09-08 Completed Unive rsity of 00:00:00 [facility] Influenza High Dose 2016-09-08 Completed Unive rsity of 00:00:00 [facility] Influenza High Dose 2016-09-08 Completed Unive rsity of 00:00:00 [facility] Pneumococcal 2016-08-15 Completed University o f Polysaccharide, 00:00:00 [place] [facility] PPSV23 (PNEUMOVAX) Branch Pneumococcal 2016-08-15 Completed University o f Polysaccharide, 00:00:00 [facility] PPSV23 (PNEUMOVAX) Branch Pneumococcal 2016-08-15 Completed University o f Polysaccharide, 00:00:00 [facility] PPSV23 (PNEUMOVAX) Branch Pneumococcal 2016-08-15 Completed University o f Polysaccharide, 00:00:00 [facility] PPSV23 (PNEUMOVAX) Branch Pneumococcal 2016-08-15 Completed University o f Polysaccharide, 00:00:00 [place] [facility] PPSV23 (PNEUMOVAX) Branch Pneumococcal 2016-08-15 Completed University o f Polysaccharide, 00:00:00 [place] [facility] PPSV23 (PNEUMOVAX) Branch Pneumococcal 2016-08-15 Completed University o f Polysaccharide, 00:00:00 [place] [facility] PPSV23 (PNEUMOVAX) Branch Pneumococcal 2016-08-15 Completed University o f Polysaccharide, 00:00:00 [place] [facility] PPSV23 (PNEUMOVAX) Branch Pneumococcal 2016-08-15 Completed University o f Polysaccharide, 00:00:00 [place] [facility] PPSV23 (PNEUMOVAX) Branch Pneumococcal 2016-08-15 Completed University o f Polysaccharide, 00:00:00 [place] [facility] PPSV23 (PNEUMOVAX) Branch Pneumococcal 2016-08-15 Completed University o f Polysaccharide, 00:00:00 [place] [facility] PPSV23 (PNEUMOVAX) Branch Pneumococcal 2016-08-15 Completed University o f Polysaccharide, 00:00:00 [place] [facility] PPSV23 (PNEUMOVAX) Branch Pneumococcal 2016-08-15 Completed University o f Polysaccharide, 00:00:00 [place] [facility] PPSV23 (PNEUMOVAX) Branch Pneumococcal 2016-08-15 Completed University o f Polysaccharide, 00:00:00 [place] [facility] PPSV23 (PNEUMOVAX) Branch Pneumococcal 2016-08-15 Completed University o f Polysaccharide, 00:00:00 [place] [facility] PPSV23 (PNEUMOVAX) Branch Pneumococcal 2016-08-15 Completed University o f Polysaccharide, 00:00:00 [place] [facility] PPSV23 (PNEUMOVAX) Branch Pneumococcal 2016-08-15 Completed University o f Polysaccharide, 00:00:00 [place] [facility] PPSV23 (PNEUMOVAX) Branch Pneumococcal 2016-08-15 Completed University o f Polysaccharide, 00:00:00 [place] [facility] PPSV23 (PNEUMOVAX) Branch Pneumococcal 2016-08-15 Completed University o f Polysaccharide, 00:00:00 [place] [facility] PPSV23 (PNEUMOVAX) Branch Pneumococcal 2016-08-15 Completed University o f Polysaccharide, 00:00:00 [place] [facility] PPSV23 (PNEUMOVAX) Branch Pneumococcal 2016-08-15 Completed University o f Polysaccharide, 00:00:00 [place] [facility] PPSV23 (PNEUMOVAX) Branch Pneumococcal 13 2015-08-15 Completed Universit y of Conjugate, PCV13 00:00:00 [place] [facility] (Prevnar 13) Branch Pneumococcal 13 2015-08-15 Completed Universit y of Conjugate, PCV13 00:00:00 [place] [facility] (Prevnar 13) [facility] Pneumococcal 13 2015-08-15 Completed Universit y of Conjugate, PCV13 00:00:00 [place] [facility] (Prevnar 13) Branch Pneumococcal 13 2015-08-15 Completed Universit y of Conjugate, PCV13 00:00:00 [place] [facility] (Prevnar 13) Branch Pneumococcal 13 2015-08-15 Completed Universit y of Conjugate, PCV13 00:00:00 [place] [facility] (Prevnar 13) Branch Pneumococcal 13 2015-08-15 Completed Universit y of Conjugate, PCV13 00:00:00 [place] [facility] (Prevnar 13) Branch Pneumococcal 13 2015-08-15 Completed Universit y of Conjugate, PCV13 00:00:00 [place] [facility] (Prevnar 13) Branch Pneumococcal 13 2015-08-15 Completed Universit y of Conjugate, PCV13 00:00:00 [place] [facility] (Prevnar 13) Branch Pneumococcal 13 2015-08-15 Completed Universit y of Conjugate, PCV13 00:00:00 [place] [facility] (Prevnar 13) Branch Pneumococcal 13 2015-08-15 Completed Universit y of Conjugate, PCV13 00:00:00 [place] [facility] (Prevnar 13) Branch Pneumococcal 13 2015-08-15 Completed Universit y of Conjugate, PCV13 00:00:00 [place] [facility] (Prevnar 13) Branch Pneumococcal 13 2015-08-15 Completed Universit y of Conjugate, PCV13 00:00:00 [place] [facility] (Prevnar 13) Branch Pneumococcal 13 2015-08-15 Completed Universit y of Conjugate, PCV13 00:00:00 [place] [facility] (Prevnar 13) Branch Pneumococcal 13 2015-08-15 Completed Universit y of Conjugate, PCV13 00:00:00 [place] [facility] (Prevnar 13) Branch Pneumococcal 13 2015-08-15 Completed Universit y of Conjugate, PCV13 00:00:00 [place] [facility] (Prevnar 13) Branch Pneumococcal 13 2015-08-15 Completed Universit y of Conjugate, PCV13 00:00:00 [place] [facility] (Prevnar 13) Branch Pneumococcal 13 2015-08-15 Completed Universit y of Conjugate, PCV13 00:00:00 [place] [facility] (Prevnar 13) Branch Pneumococcal 13 2015-08-15 Completed Universit y of Conjugate, PCV13 00:00:00 [place] [facility] (Prevnar 13) Branch Pneumococcal 13 2015-08-15 Completed Universit y of Conjugate, PCV13 00:00:00 [place] [facility] (Prevnar 13) Branch Pneumococcal 13 2015-08-15 Completed Universit y of Conjugate, PCV13 00:00:00 [place] [facility] (Prevnar 13) Branch Pneumococcal 13 2015-08-15 Completed Universit y of Conjugate, PCV13 00:00:00 [facility] dical (Prevnar 13) Branch Vital Signs Vital Name Observation Time Observation Value Comments Source Systolic blood 2022-10-10 21:56:00 135 mm[Hg] Univer sity of pressure [facility] Diastolic blood 2022-10-10 21:56:00 76 mm[Hg] Unive rsity of [facility] Heart rate 2022-10-10 21:56:00 65 /min [facility]i ty [facility] Body temperature 2022-10-10 21:56:[address] [facility] Respiratory rate 2022-10-10 21:56:00 18 /min Univ ersity [facility] Body height 2022-10-10 21:56:[address] [facility] Body weight 2022-10-10 21:56:[address] [facility] BMI 2022-10-10 21:56:00 28.45 kg/m2 Universi ty [facility] Oxygen saturation in 2022-10-10 21:56:00 97 /min University of Arterial blood by [facility] Pulse oximetry Branch Systolic blood 2022-05-17 20:30:00 156 mm[Hg] Univer sity of [facility] Diastolic blood 2022-05-17 20:30:00 82 mm[Hg] Unive rsity of [facility] Heart rate 2022-05-17 20:30:00 67 /min Universi ty [facility] Respiratory rate 2022-05-17 20:30:00 16 /min Univ ersity [facility] Oxygen saturation in 2022-05-17 20:30:00 95 /min University of Arterial blood by [facility] Pulse oximetry Branch Body temperature 2022-05-17 19:59:00 36.11 [place] Univ ersity of [facility] Body height 2022-05-17 15:17:00 177.8 cm Universi ty of [facility] Body weight 2022-05-17 15:17:00 95.255 kg Universi ty of [facility] BMI 2022-05-17 15:17:00 30.13 kg/m2 Universi ty [facility] Systolic blood 2022-05-17 20:00:00 132 mm[Hg] Univer sity of pressure [facility] Diastolic blood 2022-05-17 20:00:00 72 mm[Hg] Unive rsity of pressure [facility] Heart rate 2022-05-17 20:00:00 79 /min Universi ty of [facility] Respiratory rate 2022-05-17 20:00:00 22 /min Univ ersity of [facility] Oxygen saturation in 2022-05-17 20:00:00 99 /min University of Arterial blood by [employer] Pulse oximetry Branch Body temperature 2022-05-17 19:59:00 36.11 [place] Univ ersity of [facility] Body height 2022-05-17 15:17:00 177.8 cm Universi ty [facility] Body weight 2022-05-17 15:17:00 95.255 kg Universi ty [facility] BMI 2022-05-17 15:17:00 30.13 kg/m2 [facility]i [facility] Systolic blood 2022-03-16 15:07:00 141 mm[Hg] Univer sity of pressure [facility] Diastolic blood 2022-03-16 15:07:00 79 mm[Hg] Unive rsity of pressure [facility] Heart rate 2022-03-16 15:03:00 65 /min Universi ty [facility] Respiratory rate 2022-03-16 15:03:00 18 /min Univ ersity of [facility] Body height 2022-03-16 15:03:00 182.9 cm Universi ty [facility] Body weight 2022-03-16 15:03:00 96.616 kg [facility]i [facility] BMI 2022-03-16 15:03:00 28.89 kg/m2 [facility] Oxygen saturation in 2022-03-16 15:03:00 97 /min University of Arterial blood by [employer] P[facility]xim[facility] Branch Procedures Procedure Date / Time Performing Source Performed Clinician ASSIGNMENT OF BENEFITS 2022-10-10 Doctor Universit y of 21:17:49 Unassigned, No [facility] REFERRAL- REQUEST/RESPONSE 2022-09-04 Doctor Pino rsity of 05:01:00 Unassigned, No [facility] ESOPHAGOGASTRODUODENOSCOPY 2022-05-17 Odette Paz rsity of 18:58:00 Homero Arriaga [facility] EGD (ENDO) 2022-05-17 Gabriele Kassie [place] of 18:37:44 J [facility] EGD (ENDO) 2022-05-17 Gabriele [facility] of 18:37:44 J [facility] COVID-19 (ID NOW RAPID TESTING) 2022-05-17 Gabriele [facility] of 15:21:00 J [facility] COVID-19 (ID NOW RAPID TESTING) 2022-05-17 Gabriele [facility] of 15:21:00 J [facility] LAB ONLY COVID INTERPRETATION 2022-05-17 Kassie Suazo niversity of 15:21:00 [facility] NOTICE OF PRIVACY PRACTICES 2022-05-17 Doctor [facility] ersity of 15:11:27 Unassigned, No [facility] NOTICE OF PRIVACY PRACTICES 2022-05-17 Doctor [facility] ersity of 15:11:27 Unassigned, No [facility] CONSENT/REFUSAL FOR DIAGNOSIS AND 2022-05-17 [facility] TREATMENT 15:11:06 Unassigned, No [facility] DAY SURGERY - ADC 2022-05-17 [facility] 05:01:00 Unassigned, No [facility] VITAMIN B12, LEVEL 2022-03-16 [facility] 16:36[facility]00 [facility] 2022-03-16 [facility] 16:36:00 [facility] FREE T4 2022-03-[address] [facility] 16:36:00 [facility] THYROID STIMULATING HORMONE 2022-03-16 [facility] 16:36:00 [facility] COMP. METABOLIC PANEL (51350) 2022-03-16 Zaldivra iversity of 16:36:00 [facility] LIPID PANEL (96994)(TOTAL 2022-03-16 Mercedez Zaldivar sity of CHOLESTEROL, TRIGLYCERIDES, HDL) 16:36:00 [facility] CBC WITH DIFF 2022-03-16 [facility] 16:36:00 [facility] GLYCOSYLATED HEMOGLOBIN (A1C) 2022-03-16 Kayley iversity of 16:36:00 [facility] VITAMIN D, 25-OH 2022-03-16 [facility] 16:36:00 [facility] FREE T3 2022-03-16 [facility] 16:36:00 [facility] REFERRAL- REQUEST/RESPONSE 2022-02-28 Doctor Odette rsity of 05:01:00 Unassigned, No [facility] Encounters Start End Encounter Admission Attending Care Care Encounter Source Date/Time Date/Time Type Type Clinicians Facility Department ID 2023-03-19 2023-03-19 [id number] Univers 09:00:00 09:00:00 RENETTA [facility] 2023-03-18 2023-03-18 [id number] Univers 09:00:00 09:00:[facility] 2023-03-18 2023-03-18 [id number] Univers 09:00:00 09:00:00 LATOYA [facility] 2022-12-07 2022-12-07 [facility] [id number] Univers 00:00:00 00:00:00 Cabrera LUONG [id number] ity [facility] [id number] Ellie HOWARD [id number] [address] 2022-12-07 2022-12-07 [facility] [id number] Univers 00:00:00 00:00:00 Latoya LUONG [id number] ity [place] [id number] [place] [id number] [place] dical NAL 044 [facility] 2022-11-27 2022-11-27 Outpatient R CABRERA BARRIENTOS [facility] [id number] Univers 09:15:00 10:01:40 CABRERA BARRIENTOS ity of [facility] 2022-11-27 2022-11-27 Lime Supervisor 2, Adc Lab [facility] 1.2.840.114 [id number] Univers 09:15:00 09:30:00 Visit Hakeem Kaminski 350.1.13.10 ity of Alisson Josealla [facility] 4.2.7.2.686 [place] PROFESSIO [phone] [facility] 353 [facility] 2022-11-26 2022-11-26 Telephone Team, [facility] CARMEN 1.2.840.114 [id number] Univers 00:00:00 00:00:00 Health [place] 350.1.13.10 it y of [facility] 4.2.7.2.686 [place] [phone] [facility] [address] [place] [address] 2022-11-14 2022-11-14 [facility] 1.2.840.114 [id number] Univers 00:00:00 00:00:00 Latoya LUONG 350.1.13.10 ity of [facility] 4.[place] [phone] [facility] 231 [facility] 2022-11-13 2022-11-13 Ramya [facility] 1.2.840.114 [id number] Univers 00:00:00 00:00:00 Latoya LUONG 350.1.13.10 ity of [facility] 4.[place].2.[place] [phone] Ms dical [facility] 231 [facility] 2022-10-10 2022-10-10 Outpatient R CABRERA BARRIENTOS [facility] [id number] Univers 16:00:00 16:19:[address] [facility] 2022-10-10 2022-10-10 Office [facility] 1.2.840.114 [id number] Univers 16:00:00 16:19:40 Visit Cabrera CHERISE 350.1.13.10 ity of [facility] 4.2.7.[place] [phone] [address] 2022-10-10 2022-10-10 Orders Doctor CARMEN 1.2.840.114 [id number] Univers 00:00:00 00:00:00 Only Unassigned, SYEDA 350.1.13.10 ity of [place] [facility] 4.2.7.2.686 Neal as [phone] [address] 2022-09-04 2022-09-04 Telephone [facility] 1.2.840.114 [id number] [facility] 00:00:00 00:00:00 Latoya LUONG 350.1.13.10 ity [place] [phone] [address] 2022-09-04 2022-09-04 Orders Doctor CARMEN 1.2.840.114 [id number] Univers 00:00:00 00:00:00 Only Unassigned, SYEDA 350.1.13.10 ity of [place] [facility] 4.2.7.2.686 [place] as [phone] [address] 2022-06-09 2022-06-09 Refill [facility] 1.2.840.114 [id number] Univers 00:00:00 00:00:00 Latoya LUONG 350.1.13.10 ity of [facility] 4.[place] [phone] [address] 2022-06-07 2022-06-07 Refill [facility] 1.2.840.114 [id number] Univers 00:00:00 00:00:00 Latoya LUONG 350.1.13.10 ity of [facility] 4.2.[place] [phone] Ms dical NAL 231 [facility] 2022-05-18 2022-05-18 Refill Kayley [facility] 1.2.840.114 [id number] Univers 00:00:00 00:00:00 Latoya LUONG 350.1.13.10 ity of [place] [phone] Ms dical NAL 231 [facility] 2022-05-17 2022-05-17 Outpatient X [facility] ERT [id number] Univers 10:15:00 15:45:00 HOMERO Leggett o f [facility] 2022-05-17 2022-05-17 Emergency Kassie Suazo [facility] 1.2.8 40.114 [id number] Univers 10:15:00 15:45:00 Homero Paz 350.1.1 3.10 ity of [facility] 4.2.7.2.[place] [phone] [facility] [address] 2022-05-17 2022-05-17 Surgery [facility] 1.2.840.114 [id number] Univers 13:45:00 15:00:00 Homero leggett 350.1.13.10 ity of [place] [phone] [facility] [address] 2022-05-17 2022-05-17 Orders Doctor CARMEN 1.2.840.114 [id number] Univers 00:00:00 00:00:00 Only Unassigned, SYEDA 350.1.13.10 ity of [place] [facility] 4.2.7.2.686 [place] as [phone] [facility] [address] 2022-03-16 2022-03-16 Lime Supervisor 2, Adc Lab [facility] 1.2.840.114 [id number] Univers 11:30:00 11:45:00 Visit Latoya Zaldivar 350.1. 13.10 ity of [place].2.[place] [id number] Ms dical NAL 353 [facility] 2022-03-16 2022-03-16 Office [facility] 1.2.840.114 [id number] Univers 10:00:00 11:19:23 Visit Latoya LUONG 350.1.13.10 ity of [place] [phone] Ms dical [facility] 231 [facility] 2022-03-16 2022-03-16 Outpatient R KAYLEY [facility] [id number] Univers 10:00:00 11:19:23 LATOYA ity of [facility] 2022-02-28 2022-02-28 Orders Doctor CARMEN 1.2.840.114 [id number] Univers 00:00:00 00:00:00 Only Unassigned, SYEDA 350.1.13.10 ity of [place] [facility] 4.2.7.2.686 [place] as [phone] [address] 2021-11-28 2021-11-28 Refill [facility] 1.2.840.114 [id number] Univers 00:00:00 00:00:00 Latoya LUONG 350.1.13.10 ity of [place] [phone] [facility] 044 [facility] 2021-11-16 2021-11-16 Refill [facility] 1.2.840.114 [id number] Univers 00:00:00 00:00:00 Latoya LUONG 350.1.13.10 ity of [place] [phone] Ms dical [facility] 231 [facility] 2021-09-26 2021-09-26 Telephone [facility] 1.2.840.114 [id number] Univers 00:00:00 00:00:00 Latoya LUONG 350.1.13.10 ity of [place] [phone] Ms dical [facility] 225 [facility] 2021-09-26 2021-09-26 Orders Doctor CARMEN 1.2.840.114 [id number] Univers 00:00:00 00:00:00 Only Unassigned, SYEDA 350.1.13.10 ity of [place] [facility] 4.2.7.2.686 [place] as [phone] [address] 2021-09-19 2021-09-19 Telephone [facility] 1.2.840.114 [id number] Univers 00:00:00 00:00:00 Latoya LUONG 350.1.13.10 ity of [facility] 4.2.7.2.[place] [phone] [address] 2021-09-19 2021-09-19 Refill [facility] 1.2.840.114 [id number] Univers 00:00:00 00:00:00 Latoya LUONG 350.1.13.10 ity of [place] [phone] [address] 2021-06-28 2021-06-28 Refill [facility] 1.2.840.114 [id number] Univers 00:00:00 00:00:00 Randa Luong 350.1.13.10 ity of [place] [phone] [address] 2021-06-05 2021-06-05 Refill [facility] 1.2.840.114 [id number] Univers 00:00:00 00:00:00 Latoya Luong 350.1.13.10 ity of [place] [phone] [address] 2021-05-18 2021-05-18 Refill [facility] 1.2.840.114 [id number] Univers 00:00:00 00:00:00 Latoya Luong 350.1.13.10 ity of [place] [phone] Ms dical nal 231 [facility] 2021-04-11 2021-04-11 Telephone Kayley [facility] 1.2.840.114 [id number] Univers 00:00:00 00:00:00 Latoay Luong 350.1.13.10 ity of [place] [phone] Ms dical [facility] 231 [facility] 2021-04-02 2021-04-02 Refill [facility] 1.2.840.114 [id number] Univers 00:00:00 00:00:00 Latoya Luong 350.1.13.10 ity of [place] [phone] [facility] 044 [facility] 2021-03-21 2021-03-21 Outpatient R KAYLEY [facility] [id number] Univers 11:30:00 11:30:00 LATOYA ity of [facility] 2021-03-21 2021-03-21 Lime Supervisor Cecy, Marilee Lab Main [facility] 1.2.8 40.114 [id number] Univers 09:33:56 09:48:56 Visit Latoya Zaldivar 350.1. 13.10 ity of [place] [phone] [facility] 353 [facility] 2021-03-21 2021-03-21 Orders Doctor CARMEN 1.2.840.114 [id number] Univers 00:00:00 00:00:00 Only Unassigned, SYEDA 350.1.13.10 ity of [place] [facility] 4.2.7.2.686 [place] as [phone] [address] 2021-03-16 2021-03-16 Office Kayley [facility] 1.2.840.114 [id number] Univers 09:47:12 11:48:19 Visit Latoya Luong 350.1.13.10 ity of [place] [phone] [address] 2021-03-16 2021-03-16 Outpatient R KAYLEY [facility] [id number] Univers 10:00:00 10:00:00 LATOYA ity of [facility] 2021-02-28 2021-02-28 Telephone [facility] 1.2.840.114 [id number] Univers 00:00:00 00:00:00 Latoya A [place] 350.1.13.10 ity [place] [phone] [address] 2021-02-27 2021-02-27 Orders Doctor CARMEN 1.2.840.114 [id number] Univers 00:00:00 00:00:00 Only Unassigned, SYEDA 350.1.13.10 ity of [place] [facility] 4.2.7.2.686 [place] as [phone] [address] 2020-12-22 2020-12-22 [facility] 1.2.840.114 [id number] Univers 00:00:00 00:00:00 Latoya A [place] 350.1.13.10 [place] [phone] [address] 2020-12-19 2020-12-19 [facility] 1.2.840.114 [id number] Univers 00:00:00 00:00:00 Latoya A [place] 350.1.13.10 it[place] [phone] [address] 2020-09-28 2020-09-28 Telephone [facility] 1.2.840.114 [id number] Univers 00:00:00 00:00:00 Latoya A [place] 350.1.13.10 ity of [place] [phone] [address] 2020-09-26 2020-09-26 Orders Doctor CARMEN 1.2.840.114 [id number] Univers 00:00:00 00:00:00 Only Unassigned, SYEDA 350.1.13.10 ity of [place] [facility] 4.2.7.2.686 [place] as [phone] [address] 2020-09-20 2020-09-20 Refill [facility] 1.2.840.114 [id number] Univers 00:00:00 00:00:00 Latoya A [place] 350.1.13.10 ity of [place] [phone] Ms dic[address] 2020-09-20 2020-09-20 Refill [facility] 1.2.840.114 [id number] Univers 00:00:00 00:00:00 Latoya A [place] 350.1.13.10 ity of [place] [phone] Ms dic[address] 2020-08-22 2020-08-22 Telephone [facility] 1.2.840.114 [id number] Univers 00:00:00 00:00:00 Latoya A [place] 350.1.13.10 ity of [place] [phone] Ms dical [address] 2020-08-22 2020-08-22 Orders Doctor MORALES 1.2.840.114 [id number] Univers 00:00:00 00:00:00 Only Unassigned, SYEDA 350.1.13.10 ity of [place] [facility] 4.2.7.2.686 [place] as [phone] [address] 2020-07-02 2020-07-02 Refill [facility] 1.2.840.114 [id number] Univers 00:00:00 00:00:00 Latoya A [place] 350.1.13.10 ity of [place] [phone] Ms [facility] 044 [facility] 2020-05-17 2020-05-17 Refill [facility] 1.2.840.114 [id number] Univers 00:00:00 00:00:00 Latoya Zhao [place] 350.1.13.10 ity of [place] [phone] [facility] 231 [facility] 2020-03-25 2020-03-25 Telephone [facility] 1.2.840.114 [id number] Univers 00:00:00 00:00:00 Latoya Pavel [place] 350.1.13.10 ity of [place] [phone] [facility] 231 [facility] 2020-03-21 2020-03-21 Lime Supervisor Cecy, Adc Lab Main [facility] 1.2.8 40.114 [id number] Univers 08:58:26 09:13:26 Visit Latoya Zaldivar 350.1. 13.10 ity of [place] [phone] [facility] 353 [facility] 2020-03-21 2020-03-21 Outpatient R KAYLEY [facility] [id number] Univers 09:00:00 09:00:[address] [facility] 2020-03-21 2020-03-21 Orders Doctor MORALES 1.2.840.114 [id number] Univers 00:00:00 00:00:00 Only Unassigned, SYEDA 350.1.13.10 ity of [place] [facility] 4.2.7.2.686 [place] as [phone] [address] 2020-03-14 2020-03-14 Outpatient R KAYLEY [facility] [id number] Univers 15:00:00 15:00:[address] [facility] 2020-03-14 2020-03-14 Telemedici [facility] 1.2.840.114 [id number] Univers 09:03:45 09:43:45 ne Visit Latoya Luong 350.1.13.10 it[place] [phone] Ms [facility] 231 [facility] 2020-03-03 2020-03-03 [facility] 1.2.840.114 [id number] Univers 00:00:00 00:00:00 Latoya A [place] 350.1.13.10 [place] of [place] [phone] [facility] 2019-07-16 2019-07-16 [facility] 1.2.840.114 [id number] Univers 00:00:00 00:00:00 Latoya Luong 350.1.13.10 [place] of [place] [phone] [facility] 044 [facility] 2019-07-13 2019-07-13 Orders Doctor CARMEN 1.2.840.114 [id number] Univers 00:00:00 00:00:00 Only Unassigned, SYEDA 350.1.13.10 ity of [place] [facility] 4.2.7.2.686 [place] as [phone] [address] 2019-07-13 2019-07-13 Letter Doctor CARMEN 1.2.840.114 [id number] Univers 00:00:00 00:00:00 (Out) Unassigned, SYEDA 350.1.13.10 ity of [place] [facility] 4.2.7.2.686 [place] as [phone] [address] Results This patient has no known results.
--- NOTE | 2022-12-11 10:28 | RAD REPORT ---
EXAM DESCRIPTION: RAD - Lumbar Spine 3 Views - 12/11/2022 10:17 am CLINICAL HISTORY: PAINleft lower back, intermittent pain in the right lower back COMPARISON: No comparisons FINDINGS: A three-view lumbar spine examination was performed. Lumbar bodies are normal in height and alignment. No fracture or acute bony process seen. Large endpl ate spurs are present throughout the lumbar spine. L1-2 and L2-3 disc space narrowing present. Patien t has advanced facet joint degenerative change progressing in severity from superior to inferior lumb ar levels. No pars defects identified. Nonaneurysmal aortoiliac calcifications. 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 L1-2 and L2-3 disc space narrowing. No fracture or acute lumbar finding. Concerns for central spinal stenosis, disc herniation or occult bone process can be further addressed with nonemergent outpatient MR imaging.
[2022-12-11] MEDS ORDERED: DIAZEPAM 5 MG TABLET ONE (10:37)
--- NOTE | 2022-12-11 11:06 | ER ---
Nurse's Notes [facility] Name: Morris Lorenzana Age: 87 yrs Sex: Male : 1935 Arrival Date: 12/11/2022 Time: 09:25 Bed 16 Private MD: Diagnosis: Low back pain;Other intervertebral disc degeneration, lumbar region Presentation: 12/11 10:20 Chief complaint: Patient states: low back pain that radiates down legs at times x 1 ss month. Pt was given Tramadol and meloxicam 3 weeks ago by his PCP and has not had any relief from that. Coronavirus screen: Client denies travel out of the [place] in the last 14 days. Ebola Screen: Patient denies exposure to infectious person. Patient denies travel to an Ebola-affected area in the 21 days before illness onset. Initial Sepsis Screen: Does the patient meet any 2 criteria? No. Patient's initial sepsis screen is negative. Does the patient have a suspected source of infection? No. Patient's initial sepsis screen is negative. Risk Assessment: Do you want to hurt yourself or someone else? Patient reports no desire to harm self or others. Onset of symptoms was November 2022. 10:20 Method Of Arrival: Wheelchair ss 10:20 Acuity: EDUARDO 3 ss Historical: - Allergies: 10:22 No Known Allergies; ss - Home Meds: 10:22 Lisinopril Oral [Active]; Metformin Oral [Active]; metoprolol [Active]; amlodipine oral ss [Active]; meloxicam oral [Active]; - PMHx: 10:22 Diabetes mellitus; Hypertensive disorder; ss - Immunization history:: Client reports receiving the 2nd dose of the Covid vaccine. - Social history:: Smoking status: Patient reports use of chewing tobacco. Screenin:50 [facility] ED Fall Risk Assessment (Adult) History of falling in the last 3 months, ss including since admission No falls in past 3 months (0 pts). Abuse screen: Denies threats or abuse. Denies injuries from another. Nutritional screening: No deficits noted. Tuberculosis screening: Never had TB. Assessment: 10:50 General: Appears uncomfortable, Behavior is calm, cooperative. Pain: Complains of pain ss in low back Pain radiates to right leg and left leg Pain at worst was 8 out of 10 on a pain scale. Pain began 1 month ago Is. Neuro: Level of Consciousness is awake, alert, obeys commands, Oriented to person, place, time, situation. Cardiovascular: Capillary refill < 3 seconds is brisk in bilateral fingers. Respiratory: Airway is patent Respiratory effort is even, unlabored, Respiratory pattern is regular, symmetrical. Derm: Skin is intact, is healthy with good turgor, Skin is dry, Skin is pink, warm \T\ dry. normal. Musculoskeletal: Circulation, motion, and sensation intact. Range of motion: intact in all extremities, Swelling absent. 11:44 Reassessment: Patient appears in no apparent distress at this time. Patient and/or ph family updated on plan of care and expected duration. Pain level reassessed. Patient is alert, oriented x 3, equal unlabored respirations, skin warm/dry/pink. Patient states symptoms have improved. Vital Signs: 10:20 BP 135 / 63; Pulse 67; Resp 16; Temp 98.0(O); Pulse Ox 98% on R/A; Weight 88.45 kg; ss Height 5 ft. 11 in. (180.34 cm) (R); Pain 8/10; 11:43 BP 118 / 78; Pulse 64; Resp 18; Temp 98.0; Pulse Ox 99% on R/A; ph 10:20 Body Mass Index 27.20 (88.45 kg, 180.34 cm) ss ED Course: 09:25 Patient arrived in ED. rg4 09:33 Munir Benjamin DO is Attending Physician. ms3 10:19 Lumbar Spine (3 Views) XRAY In Process Unspecified. EDMS 10:22 Triage completed. ss 10:22 Arm band placed on right wrist. ss 10:50 Patient has correct armband on for positive identification. Placed in gown. Bed in low ss position. Call light in reach. Side rails up X 1. 11:24 Jacey Pacheco, RN is Primary Nurse. ph 11:43 No provider procedures requiring assistance completed. Patient did not have IV access ph during this emergency room visit. Administered Medications: 10:36 Drug: Valium (diazepam) 5 mg Route: PO; ss 11:43 Follow up: Response: No adverse reaction ph 11:30 Drug: Decadron (dexamethasone) 10 mg Route: IM; Site: left deltoid; ph 11:43 Follow up: Response: No adverse reaction ph Medication: 10:50 VIS not applicable for this client. Outcome: 11:05 Discharge ordered by . ms3 11:43 Discharged to home via wheelchair, with family. ph 11:43 Condition: good 11:43 Discharge instructions given to patient, family, Instructed on discharge instructions, follow up and referral plans. medication usage, Demonstrated understanding of instructions, follow-up care, medications, Prescriptions given X 1. 11:44 Patient left the ED. ph Signatures: Dispatcher [employer] EDMago Curiel RN RN Jacey Pacheco RN RN ph Jojo Greer rg4 Munir Benjamin DO DO ms3
--- NOTE | 2022-12-11 11:06 | EDPHYS ---
Physician Documentation [facility] Name: Morris Lorenzana Age: 87 yrs Sex: Male : 1935 Arrival Date: 12/11/2022 Time: 09:25 Bed 16 Private MD: ED Physician Munir Benjamin HPI: 12/11 10:14 This 87 yrs old Male presents to ER via Unassigned with complaints of Low Back Pain, ms3 Leg Pain. 10:14 87-year-old male with past medical history of diabetes and hypertension presents for ms3 sciatic nerve pain. Patient states the pain is located in the left lower back radiating to bilateral legs. Patient states pain began 3 weeks ago. Patient saw a PA at his primary care physician's office and was given medications at that time. Patient states the pain is persisted and he has also had 4 visits with a chiropractor within the last 2 weeks. Sitting in the wheelchair patient denies pain at this time. Patient denies incontinence, fevers, chills, numbness, weakness.. Historical: - Allergies: 10:22 No Known Allergies; ss - Home Meds: 10:22 Lisinopril Oral [Active]; Metformin Oral [Active]; metoprolol [Active]; amlodipine oral ss [Active]; meloxicam oral [Active]; - PMHx: 10:22 Diabetes mellitus; Hypertensive disorder; ss - Immunization history:: Client reports receiving the 2nd dose of the Covid vaccine. - Social history:: Smoking status: Patient reports use of chewing tobacco. ROS: 10:14 Constitutional: Negative for fever, and chills. Neck: Negative for injury, pain, and ms3 swelling, Cardiovascular: Negative for chest pain, and palpitations. Respiratory: Negative for shortness of breath, cough, wheezing, and pleuritic chest pain, Abdomen/GI: Negative for abdominal pain, nausea, vomiting, diarrhea, and constipation. 10:14 Back: Positive for pain at rest, pain with movement, radiated pain. 10:14 All other systems are negative. Exam: 10:14 Constitutional: This is a well developed, well nourished patient who is awake, alert, ms3 and in no acute distress. Head/Face: Normocephalic, atraumatic. Neck: Trachea midline, no cervical lymphadenopathy. Supple, full range of motion without nuchal rigidity, or vertebral point tenderness. No Meningismus. Chest/axilla: Normal chest wall appearance and motion. Nontender with no deformity. Cardiovascular: Regular rate and rhythm with a normal S1 and S2. No gallops, murmurs, or rubs. Normal PMI, no JVD. No pulse deficits. Respiratory: Lungs have equal breath sounds bilaterally, clear to auscultation and percussion. No rales, rhonchi or wheezes noted. No increased work of breathing, no retractions or nasal flaring. Abdomen/GI: Soft, non-tender, with normal bowel sounds. No distension or tympany. No guarding or rebound. No evidence of tenderness throughout. 10:14 Skin: Warm, dry with normal turgor. Normal color with no rashes, no lesions, and no evidence of cellulitis. Neuro: Awake and alert, GCS 15, oriented to person, place, time, and situation. Cranial nerves II-XII grossly intact. Motor strength 5/5 in all extremities. Sensory grossly intact. 10:14 Back: pain, that is severe, of the left low back. Vital Signs: 10:20 BP 135 / 63; Pulse 67; Resp 16; Temp 98.0(O); Pulse Ox 98% on R/A; Weight 88.45 kg; ss Height 5 ft. 11 in. (180.34 cm) (R); Pain 8/10; 11:43 BP 118 / 78; Pulse 64; Resp 18; Temp 98.0; Pulse Ox 99% on R/A; ph 10:20 Body Mass Index 27.20 (88.45 kg, 180.34 cm) ss MDM: 09:45 Patient medically screened. ms3 10:16 Differential diagnosis: arthritis, strain, sciatica, Compression fracture. ms3 18:03 Data reviewed: vital signs, nurses notes, radiologic studies, and as a result, I will ms3 discharge patient. I considered the following discharge prescriptions or medication management in the emergency department Medications were administered in the Emergency Department. See MAR. Independent interpretation of the following test(s) in the Emergency Department X-Ray: My interpretation is X-ray images reviewed by myself negative for compression fracture.. Historians other than the Patient: Daughter/Son: Patient's son. Counseling: I had a detailed discussion with the patient and/or guardian regarding: the historical points, exam findings, and any diagnostic results supporting the discharge/admit diagnosis, radiology results, the need for outpatient follow up. ED course: Discussed x-ray results with patient's son and patient. Patient to follow-up with Dr. Olivera in [address] Olivera contact information handed to patient and son. All questions were answered. Return precautions discussed include numbness, incontinence, fevers, worsening symptoms, or any other concerns.. 12/11 09:45 Order name: Lumbar Spine (3 Views) XRAY; Complete Time: 10:50 ms3 Administered Medications: 10:36 Drug: Valium (diazepam) 5 mg Route: PO; ss 11:43 Follow up: Response: No adverse reaction ph 11:30 Drug: Decadron (dexamethasone) 10 mg Route: IM; Site: left deltoid; ph 11:43 Follow up: Response: No adverse reaction ph Disposition Summary: 12/11/22 11:05 Discharge Ordered Location: Home ms3 Condition: Stable ms3 Diagnosis - Low back pain ms3 - Other intervertebral disc degeneration, lumbar region ms3 Followup: ms3 - With: Private Physician - When: 1 - 2 days - Reason: Recheck today's complaints Discharge Instructions: - Discharge Summary Sheet ms3 Forms: - Medication Reconciliation Form ms3 - Thank You Letter ms3 - Antibiotic Education ms3 - Prescription Opioid Use ms3 Prescriptions: - Zanaflex 4 mg Oral Tablet - take 1 tablet by ORAL route every 8 hours As needed; 20 tablet; Refills: 0, ms3 Product Selection Permitted Signatures: Dispatcher [employer] Mago Casas RN RN Jacey Pacheco RN RN Munir Benjamin, DO ms3
[2022-12-11] MEDS ORDERED: dexAMETHasone 10 MG/ML VIAL ONE (11:31)
[2022-12-11 12:08] VITALS: TEMP 98
[2022-12-11 12:10] VITALS: BP 118/78; O2SAT 99
== END 2022-12-11 11:44 | disposition home or self-care (01) ==
LOC: ER 09:22
DX: M51.36 Other intervertebral disc degeneration, lumbar region (principal); E11.9 Type 2 diabetes mellitus without complications; I10 Essential (primary) hypertension; F17.220 Nicotine dependence, chewing tobacco, uncomplicated
CPT/HCPCS: 72100; J1100

== ENCOUNTER 2023-05-27 06:04 | Day surgery (SDC) | payer OTHER ==
[2023-05-22 16:27] LABS: Absolute Lymphocytes (CBC) 2.2 K/uL (0.7-4.9); Hematocrit 38.1 % (39.6-49.0); Lymphocytes % 24.9 % (15.3-44.8); MCV 87.8 fL (80-100); MPV 6.7 fL (7.6-11.3); Platelets 313 thou/uL (152-406); RBC Red Blood Cell Count 4.34 M/uL (4.33-5.43)
[2023-05-22 16:37] LABS: Potassium 4.1 mEq/L (3.5-5.1)
[2023-05-27] MEDS ORDERED: DEPO-MEDROL 40 MG/ML IM ONE (06:30)
[2023-05-27] MEDS ORDERED: VANCOMYCIN 1 GM/VIAL ONE (06:30)
[2023-05-27] MEDS ORDERED: THROMBIN 5000 UNITS/VIAL TOP ONE (06:31)
[2023-05-27] MEDS ORDERED: NA CHLORIDE 0.9% 1,000 ML ONE (06:37)
[2023-05-27] MEDS ORDERED: CEFAZOLIN SODIUM 2 GM/VIAL ONE (06:37)
[2023-05-27] MEDS ORDERED: propofoL 200 MG/20 ML VIAL IV ONE ×3 (07:02→08:40)
[2023-05-27] MEDS ORDERED: FENTANYL CITR 100 MCG/2 ML ONE (07:02)
[2023-05-27] MEDS ORDERED: ROCURONIUM 50 MG/5 ML VIAL IV ONE (07:03)
[2023-05-27] MEDS ORDERED: ONDANSETRON 4 MG/2 ML VIAL ONE (07:04)
[2023-05-27] MEDS ORDERED: LIDOCAINE 2% MPF 5 ML VIAL ONE (07:04)
[2023-05-27] MEDS ORDERED: HYDROMORPHONE HCL 1 MG/ML INJ ONE (07:18)
[2023-05-27] MEDS ORDERED: dexAMETHasone 10 MG/ML VIAL ONE (07:58)
[2023-05-27] MEDS ORDERED: Phenylephrine HCl 10 MG/ML 1 ML VIAL ONE (07:59)
[2023-05-27] MEDS ORDERED: EPHEDRINE SULF 50 MG/ML VIAL ONE (08:18)
[2023-05-27] MEDS ORDERED: KETOROLAC 30 MG/ML INJ ONE (08:52)
[2023-05-27] MEDS ORDERED: Mastisol Adhesive Liq ONE (09:00)
[2023-05-27 09:27] VITALS: O2SAT 100
[2023-05-27] MEDS: HYDROMORPHONE HCL 1 MG/ML INJ ONE ×2 (09:39→09:45)
[2023-05-27] MEDS ORDERED: HYDROCODONE/APAP 10/325 TAB ONE (10:30)
[2023-05-27 10:48] VITALS: TEMP 97.6
[2023-05-27 10:49] VITALS: BP 104/59
--- NOTE | 2023-05-29 11:54 | RAD REPORT ---
EXAM DESCRIPTION: RAD - Fluoroscopy <1 Hour - 05/29/2023 10:56 am CLINICAL HISTORY: Spinal decompression FINDINGS: 4 intraoperative spot images obtained. Fluoroscopy time 0 minutes Localization of the superior aspect of the L3 spinous process performed. Procedure performed by Dr. Olivera
== END 2023-05-27 11:00 | disposition home or self-care (01) ==
LOC: OR 06:04
PROVIDERS: ATTEND Orthopaedic Surgery
PROC: 01NB0ZZ Release Lumbar Nerve, Open Approach (ICD-10-PCS; principal; 2023-05-27 07:00)
DX: M48.062 Spinal stenosis, lumbar region with neurogenic claudication (principal); E11.9 Type 2 diabetes mellitus without complications; I10 Essential (primary) hypertension; Z85.9 Personal history of malignant neoplasm, unspecified
CPT/HCPCS: 85025; 80048; 36415; 82947 ×2; 63047; 63048; J2704 ×3; J2371; J2001; J3010; J1100; J1170; J2405; J7030; 76000; J1030